=== PATIENT | male | born 1960 | race Caucasian/White ===

== ENCOUNTER 2016-08-04 02:28 | Emergency (ER) | payer OTHER ==
--- NOTE | 2016-08-04 04:49 | ED ORDER SUMMARY ---
..... Patient: SARA JEREZ OrderSheet [facility] VisitID: [id number] [address] [place] [address] 55y, M Registration Date/Time: 08/04/2016 ORDER SHEET Weight: 147.4 kg (stated) Allergies: No Known Drug Allergy GENERAL ORDERS: UA-Culture if indicated Urgent (03:03 08/04/2016 Tra Poole) (Ack 3:10 [facility] Customer Loyalty Representative) (3:50 JQuivey R.N.) Richards Catheter (03:03 08/04/2016 Tra Poole) (Ack 3:09 JQuivey R.N.) (3:50 JQuivey R.N.) MEDICATION ORDERS: Ativan PO 1 mg (HIGH ALERT MEDICATION, NOW) (04:20 08/04/2016 Tra Poole) (4:24 JQuivey R.N.) IV FLUIDS: ORDER SHEET NOTES: [Electronically signed by Scar Hu R.N. (05:01 08/04/2016)] [Electronically signed by Shayan Villatoro Dr. (05:36 08/06/2016)] [Electronically locked/signed by Scar Hu R.N. (05:01 08/04/2016)]
--- NOTE | 2016-08-04 04:49 | ED NURSING NOTES ---
Clinical Report - Nurses [facility] [address] [place] [address] 08/04/2016 2:30 Patient: SARA JEREZ TRIAGE Acuity: LEVEL 3. Chief Complaint: URINARY RETENTION. 03:09. Alert. SEPSIS SCREEN: Sepsis Screen. Negative (no infection suspected/documented). --03:09 Scar Hu R.N. 02:51 08/04/16. BP: 147/73. HR: 85. RR: 18. O2 saturation: 95%. Temp: 98.5 F (oral). Pain level now: 01/01. --03:09 Scar Hu R.N. Weight: 147.4 kg stated. Height/Length: 72 inches Per Patient. BMI: 44.1. --03:08 Scar Hu R.N. Medications Percocet Oral 5/325 mg, 4x a day. --02:57 Scar Hu R.N. Pyridium Oral 200 mg, 3x a day. --02:57 Scar Hu R.N. Cipro Oral 500 mg, 2x a day. --02:57 Scar Hu R.N. Albuterol Sulfate Inhalation 1 unit dose, PRN. --02:58 Scar Hu R.N. Albuterol Sulfate HFA Inhalation 2 puffs, as needed. --02:59 Scar Hu R.N. AmLODIPine Besylate Oral 5 mg, daily. --02:59 Scar Hu R.N. Aspirin Oral (Tablet 81 mg) 1 tablet, daily. --02:59 Scar Hu R.N. Atorvastatin Calcium Oral 20 mg, daily. --03:00 Scar Hu R.N. Cozaar Oral 50 mg, 2x a day. --03:00 Scar Hu R.N. Eplerenone Oral (Tablet 50 mg) 1 tablet, daily. --03:00 Scar Hu R.N. Fluticasone Furoate-Vilanterol Inhalation. --03:01 Scar Hu R.N. HydrALAZINE HCl Oral (Tablet 10 mg) 1 tablet, daily. --03:01 Scar Hu R.N. Irbesartan Oral 300 mg, daily. --03:02 Scar Hu R.N. LamoTRIgine Oral (Tablet Dispersible 200 mg) 1 tablet, daily. --03:02 Scar Hu R.N. Lipitor Oral 20 mg, daily. --03:02 Scar Hu R.N. MetFORMIN HCl Oral 750mg , daily. --03:03 Scar Hu R.N. Ranitidine HCl Oral 150 mg, daily as needed. --03:03 Scar Hu R.N. Triazolam Oral 0.25 mg, at bedtime (is out ). --03:04 Scar Hu R.N. Allergies No Known Drug Allergy. --03:06 Scar Hu R.N. Medication/allergy information source: the patient and patient's spouse. --03:09 Scar Hu R.N. History Arrived by private vehicle. Historian: patient. Accompanied by spouse. Primary physician (Jeison). Onset. (about 1830). 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 PAST MEDICAL HX: Immunizations: up-to-date. SOCIAL HX: Former smoker, end date 1987. No alcohol use or drug use. No infectious disease exposure. ABUSE ASSESSMENT: No report of abuse. FALL RISK ASSESSMENT: Fall risk assessment completed. No fall risk identified. NUTRITIONAL RISK ASSESSMENT: The nutritional risk assessment revealed no deficiencies. FUNCTIONAL ASSESSMENT: Functional assessment: no impairments noted. LEARNING NEEDS ASSESSMENT: The learning needs assessment revealed no barriers. SKIN INTEGRITY ASSESSMENT: Skin integrity risk assessment completed. No skin integrity risk identified. --03:09 Scar Hu R.N. PROBLEMS: Reflux. Gastroesophageal Reflux Disease. Seizure. Hypertension. Hypercholesterolemia. Brain Tumor. --03:08 Scar Hu R.N. ADDITIONAL SURGERIES: Brain tumor removal . Kidney stone removal . Knee Surgery. Sinus Surgery. --03:08 Scar Hu R.N. Interventions ID band on patient. To treatment room. --03:09 Scar Hu R.N. PHYSICAL ASSESSMENT 03:10. Ambulatory to room. Patient gowned. GENERAL / NEURO / PSYCH: Alert. Oriented X 4. HEENT: Mucous membranes are pink. RESPIRATORY: Respirations not labored. SKIN: Skin is warm and dry. --03:10 Scar Hu R.N. NURSING PROGRESS NOTES Two patient identifiers checked. Call light placed in reach. Bed placed in lowest position. Brakes of bed on. Patient ready for evaluation- chart flagged. --03:10 Scar Hu R.N. 03:36. 14 fr erickson catheter. Reason for indwelling catheter: retention. During procedure hand hygiene observed and sterile equipment and aseptic technique used. Return of 1000 mL orange-colored red-colored bloody urine; attached to bedside drainage bag positioned below the bladder and secured with stabilization device. He tolerated procedure well. --03:49 Scar Hu R.N. 03:40. Patient ID band checked for patient name and birthdate: patient confirmed. Catheterized urine collected with return of orange-colored red-colored bloody urine; sample sent to lab for urinalysis. Specimen labeled in the presence of the patient. --03:50 Scar Hu R.N. 04:24 08/04/2016 Ativan (LORazepam) PO 1 mg given. Allergies verified, confirmed 5 rights and sedative warning given to the patient and patient's family. --04:24 Scar Hu R.N. 04:56. The patient is calm and resting quietly. Overall patient status is improved- he states feels better. SKIN: Skin is warm and dry. Skin color within normal limits. --05:00 Scar Hu R.N. DISPOSITION / DISCHARGE Departure time: 04:58. Condition at departure: stable. No learning barriers present. Discharge instructions provided and reviewed with the patient and spouse. Reviewed medication(s) side effects, precautions, dosing and course information. Prescription(s) given to the patient. Patient and spouse verbalized understanding. Written instructions provided in Lithuanian. The patient was discharged home and accompanied by spouse. He left the Emergency Department ambulatory and via private vehicle. Spouse driving. FALL RISK ASSESSMENT: Fall risk assessment completed. No fall risk identified. --04:59 Scar Hu R.N. 04:50 08/04/16. BP: 119/81. HR: 67. RR: 16. O2 saturation: 95% on room air. Pain level now: 04/03. --04:59 Scar Hu R.N. Locked/Released at 08/04/2016 5:01 by Scar Hu R.N.
--- NOTE | 2016-08-04 04:49 | ED ORDER SUMMARY ---
..... Patient: SARA JEREZ OrderSheet [facility] VisitID: [id number] [address] [place] [address] 55y, M Registration Date/Time: 08/04/2016 ORDER SHEET Weight: 147.4 kg (stated) Allergies: No Known Drug Allergy GENERAL ORDERS: UA-Culture if indicated Urgent (03:03 08/04/2016 Tra Poole) (Ack 3:10 [facility] Information Systems Project Manager) (3:50 JQuivey R.N.) Richards Catheter (03:03 08/04/2016 Tra Poole) (Ack 3:09 JQuivey R.N.) (3:50 JQuivey R.N.) MEDICATION ORDERS: Ativan PO 1 mg (HIGH ALERT MEDICATION, NOW) (04:20 08/04/2016 Tra Poole) (4:24 JQuivey R.N.) IV FLUIDS: ORDER SHEET NOTES: [Electronically signed by Scar Hu R.N. (05:01 08/04/2016)] [Electronically signed by Shayan Villatoro Dr. (05:36 08/06/2016)] [Electronically locked/signed by Scar Hu R.N. (05:01 08/04/2016)]
--- NOTE | 2016-08-04 04:49 | ED CLINICAL REPORT ---
Clinical Report - Physicians/Mid Levels [facility] [address] [place] [address] 08/04/2016 2:30 Patient: SARA JEREZ Time Seen: 0301. Arrived- By private vehicle. Historian- patient. HISTORY OF PRESENT ILLNESS Chief Complaint: URINARY RETENTION. This started today and is still present and worsening. The problem is described as severe. It was gradual in onset and has been constant but is not gone now. No penile discharge. He has been unable to void. Sexual history is noncontributory. Similar symptoms previously: None. Recent medical care: Not recently seen/assessed. REVIEW OF SYSTEMS No fever. All systems otherwise negative, except as recorded above. PAST HISTORY See nurses notes. SOCIAL HISTORY Never smoker. No alcohol use or drug use. No recent travel. Is a local resident. ADDITIONAL NOTES The nursing notes have been reviewed. PHYSICAL EXAM Vital Signs: 08/04/2016 02:51 BP: 147/73. HR: 85. RR: 18. O2 saturation: 95%. Temp: 98.5 F. Pain level now: 10/10. Oxygen saturation normal. Appearance: Alert. Oriented X3. No acute distress. (non-toxic appearance). ENT: Normal external inspection. Pharynx normal. Neck: Neck supple. CVS: Heart sounds normal. Respiratory: No respiratory distress. Breath sounds normal. Abdomen: Soft and nontender. Bowel sounds normal. No organomegaly. No mass. Femoral pulses equal. Back: Normal external inspection. : Normal genitalia. Testes descended. (erickson catheter placed by RN. blood tinged urine in tubing. no clots.). Skin: Skin warm and dry. Normal skin color. No rash. Normal skin turgor. Extremities: Extremities exhibit normal ROM. No lower extremity edema. LABS, X-RAYS, AND EKG Laboratory Tests: UA-Culture if indicated: (BRUCE: 08/04/2016 03:40) ( MsgRcvd 08/04/2016 04:46) Final results Test Result Flag Units (Reference) URINE COLOR BROWN URINE APPEARANCE CLOUDY URINE GLUCOSE NEGATIVE (NEGATIVE) URINE BILIRUBIN 1+ (NEGATIVE) URINE KETONE NEGATIVE (NEGATIVE) URINE SPECIFIC GRAVITY 1.020 (1.010-1.030) URINE PH 6.5 (5.0-8.0) URINE PROTEIN 3+ (NEGATIVE) URINE UROBILINOGEN 1.0 EU/dL (0.2-1.0) URINE NITRITE POSITIVE (NEGATIVE) URINE BLOOD 3+ (NEGATIVE) URINE LEUK ESTERASE TRACE (NEGATIVE) URINE RBC >100 rbc/hpf (0-1) URINE WBC 1-3 wbc/hpf (0-1) URINE EPITHELIAL CELLS 0-1 EPI/hpf (0-5) URINE BACTERIA TRACE (<1+) (NONE SEEN) URINE COMMENT CULTURE INDICATED URINE CULTURES ARE SET-UP BASED ON THE FOLLOWING CRITERIA:POSITIVE NITRITEPOSITIVE LEUKOCYTE ESTERASEGREATER THAN 10 WHITE BLOOD CELLSMODERATE (2+) OR GREATER BACTERIA Culture, Urine: (BRUCE: 08/04/2016 03:40) ( MsgRcvd 08/05/2016 11:10) IP Test Result Flag Units (Reference) CULTURE, URINE DATE: 08/05/16 NO GROWTH AT:: NO GROWTH AT 1 DAY PRELIM REPORT: PRELIMINARY REPORT #1 . PROGRESS AND PROCEDURES Course of Care: The patient is a pleasant 55-year-old male presenting for eval shows urinary retention. Patient had recent urological procedure. This is likely the result of the patient's urinary retention. No back pain or other symptoms to suggest acute spinal cord injury were compromise. had a discussion with the patient in regards to symptoms here in the emergency department and possible treatment options. Patient is agreeable to Erickson catheter. Because of the patient's symptoms here in the emergency department, would be concern for possible clots obstructing the patient's outflow. We'll monitor treatment emergency department after the Erickson has been placed. Urinalysis is remarkable for the findings above. Patient with urinary tract infection. Because the patient has been on ciprofloxacin, would be concern for bacterial resistance. We'll also start patient on a different antibiotic. No other concerns at this time. Patient reports significant improvement with his symptoms here in the emergency department. Erickson catheter is continued to be drained without any signs of obstruction. Discussed the patient's workup here in the emergency department including diagnosis, home care, follow-up, and return precautions. All questions have been answered. The patient expressed understanding of these instructions and was agreeable to them. Disposition: Discharged. Condition: good. CLINICAL IMPRESSION 08/04/2016 02:51 BP: 147/73. HR: 85. RR: 18. O2 saturation: 95%. Temp: 98.5 F. Pain level now: 10/10. Gross hematuria Hypertensive. Oxygen saturation normal. Acute urinary tract infection with cystitis and hematuria. Urinary retention (acute). INSTRUCTIONS Warnings: GENERAL WARNINGS: Return or contact your physician immediately if your condition worsens or changes unexpectedly, if not improving as expected, or if other problems arise. Specifically return if pain, vomiting, bleeding, breathing difficulty or fever. Your Current Medications: STOP TAKING THE FOLLOWING MEDICATIONS: Cipro Oral : 500 mg 2x a day. CONTINUE TAKING THE FOLLOWING MEDICATIONS: Albuterol Sulfate HFA Inhalation : 2 puffs, prn. Albuterol Sulfate Inhalation : 1 unit dose PRN. AmLODIPine Besylate Oral : 5 mg daily. Aspirin Oral : Tablet 81 mg, 1 tablet daily. Atorvastatin Calcium Oral : 20 mg daily. Cozaar Oral : 50 mg 2x a day. Eplerenone Oral : Tablet 50 mg, 1 tablet daily. Fluticasone Furoate-Vilanterol Inhalation. HydrALAZINE HCl Oral : Tablet 10 mg, 1 tablet daily. Irbesartan Oral : 300 mg daily. LamoTRIgine Oral : Tablet Dispersible 200 mg, 1 tablet daily. Lipitor Oral : 20 mg daily. MetFORMIN HCl Oral : 750mg daily. Percocet Oral : 5/325 mg 4x a day. Pyridium Oral : 200 mg 3x a day. Ranitidine HCl Oral : 150 mg daily, prn. Triazolam Oral : 0.25 mg at bedtime, is out. Prescription Medications: Bactrim DS 800 mg / 160 mg: take 1 tablet orally every 12 hours for 10 days. No refill. Substitution is permissible. Follow-up: Return to the emergency department as needed. Follow up with a specialist your urologist. Call for an appointment. Reason for referral: recheck today's concerns. Summary of care provided to patient via paper. Follow up with your doctor in three days. Reason for referral: recheck today's concerns. Summary of care provided to patient via paper. Screening today revealed the patient's blood pressure to be in the hypertensive range. Blood pressure screening was not performed during this visit because the patient has an active diagnosis of hypertension. The patient should follow up with a primary care provider for blood pressure management. Understanding of the discharge instructions verbalized by patient. (Electronically signed by Shayan Villatoro Dr. 08/06/2016 5:36)
--- NOTE | 2016-08-06 05:37 | ED MED RECONCILIATION SUMMARY ---
Patient: SARA JEREZ Medication Reconciliation Report Located Within [facility] VisitID: [id number] [address] [place] [address] 55y, M Registration Date/Time: 08/04/2016 Weight: 147.4 kg Height/Length: 72 in. BMI: 44.1 ALLERGIES: No Known Drug Allergy The patient's Home Medications are listed below: STOP TAKING THE FOLLOWING MEDICATIONS: Cipro Oral 500 mg, 2x a day CONTINUE TAKING THE FOLLOWING MEDICATIONS: Albuterol Sulfate HFA Inhalation 2 puffs Albuterol Sulfate Inhalation 1 unit dose, PRN AmLODIPine Besylate Oral 5 mg, daily Aspirin Oral (81 mg) 1 tablet, daily Atorvastatin Calcium Oral 20 mg, daily Cozaar Oral 50 mg, 2x a day Eplerenone Oral (50 mg) 1 tablet, daily Fluticasone Furoate-Vilanterol Inhalation HydrALAZINE HCl Oral (10 mg) 1 tablet, daily Irbesartan Oral 300 mg, daily LamoTRIgine Oral (200 mg) 1 tablet, daily Lipitor Oral 20 mg, daily MetFORMIN HCl Oral 750mg , daily Percocet Oral 5/325 mg, 4x a day Pyridium Oral 200 mg, 3x a day Ranitidine HCl Oral 150 mg, daily Triazolam Oral 0.25 mg, at bedtime, is out The source(s) of the original Home Medication information: patient patient's spouse The following Medications were given to the patient in the Emergency Department: Ativan [PO] PO 1 mg, administered: 08/04/2016 4:24:00 AM The following Medications were prescribed to the patient: Bactrim DS 800 mg / 160 mg: take 1 tablet orally every 12 hours for 10 days. No refill. Substitution is permissible. -- Shayan Villatoro Dr.
--- NOTE | 2016-08-06 05:37 | ED MAR SUMMARY ---
..... Medication Administration Record [facility] [address] [place] [address] Patient: SARA JEREZ Visit ID: [id number] 55y, M Weight: 147.4 kg Height/Length: 72 in BMI: 44.1 ALLERGIES: No Known Drug Allergy Given 04:24 08/04/2016 Scar Hu RLissetteNLissette Medication Administered: ATIVAN [PO] (LORAZEPAM), Dose: 1 mg PO. Medication Ordered: Ativan PO 1 mg (HIGH ALERT MEDICATION, NOW).
--- NOTE | 2016-08-06 05:37 | ED MAR SUMMARY ---
..... Medication Administration Record [facility] [address] [place] [address] Patient: SARA JEREZ Visit ID: [id number] 55y, M Weight: 147.4 kg Height/Length: 72 in BMI: 44.1 ALLERGIES: No Known Drug Allergy Given 04:24 08/04/2016 Scar Hu RLissetteNLissette Medication Administered: ATIVAN [PO] (LORAZEPAM), Dose: 1 mg PO. Medication Ordered: Ativan PO 1 mg (HIGH ALERT MEDICATION, NOW).
--- NOTE | 2016-08-06 05:37 | ED MED RECONCILIATION SUMMARY ---
Patient: SARA JEREZ Medication Reconciliation Report [facility] VisitID: [id number] [address] [place] [address] 55y, M Registration Date/Time: 08/04/2016 Weight: 147.4 kg Height/Length: 72 in. BMI: 44.1 ALLERGIES: No Known Drug Allergy The patient's Home Medications are listed below: STOP TAKING THE FOLLOWING MEDICATIONS: Cipro Oral 500 mg, 2x a day CONTINUE TAKING THE FOLLOWING MEDICATIONS: Albuterol Sulfate HFA Inhalation 2 puffs Albuterol Sulfate Inhalation 1 unit dose, PRN AmLODIPine Besylate Oral 5 mg, daily Aspirin Oral (81 mg) 1 tablet, daily Atorvastatin Calcium Oral 20 mg, daily Cozaar Oral 50 mg, 2x a day Eplerenone Oral (50 mg) 1 tablet, daily Fluticasone Furoate-Vilanterol Inhalation HydrALAZINE HCl Oral (10 mg) 1 tablet, daily Irbesartan Oral 300 mg, daily LamoTRIgine Oral (200 mg) 1 tablet, daily Lipitor Oral 20 mg, daily MetFORMIN HCl Oral 750mg , daily Percocet Oral 5/325 mg, 4x a day Pyridium Oral 200 mg, 3x a day Ranitidine HCl Oral 150 mg, daily Triazolam Oral 0.25 mg, at bedtime, is out The source(s) of the original Home Medication information: patient patient's spouse The following Medications were given to the patient in the Emergency Department: Ativan [PO] PO 1 mg, administered: 08/04/2016 4:24:00 AM The following Medications were prescribed to the patient: Bactrim DS 800 mg / 160 mg: take 1 tablet orally every 12 hours for 10 days. No refill. Substitution is permissible. -- Shayan Villatoro Dr.
--- NOTE | 2016-08-06 05:37 | ED DISCHARGE INSTRUCTIONS ---
Patient: SARA JEREZ General Instructions [facility] VisitID: [id number] [address] [place] [address] 55y, M Registration Date/Time: 08/04/2016 08/04/2016 02:51 BP: 147/73. HR: 85. RR: 18. O2 saturation: 95%. Temp: 98.5 F. Pain level now: 01/01. Gross hematuria Hypertensive. Oxygen saturation normal. Acute urinary tract infection with cystitis and hematuria. Urinary retention (acute). INSTRUCTIONS Warnings: GENERAL WARNINGS: Return or contact your physician immediately if your condition worsens or changes unexpectedly, if not improving as expected, or if other problems arise. Specifically return if pain, vomiting, bleeding, breathing difficulty or fever. Your Current Medications: STOP TAKING THE FOLLOWING MEDICATIONS: Cipro Oral : 500 mg 2x a day. CONTINUE TAKING THE FOLLOWING MEDICATIONS: Albuterol Sulfate HFA Inhalation : 2 puffs, prn. Albuterol Sulfate Inhalation : 1 unit dose PRN. AmLODIPine Besylate Oral : 5 mg daily. Aspirin Oral : Tablet 81 mg, 1 tablet daily. Atorvastatin Calcium Oral : 20 mg daily. Cozaar Oral : 50 mg 2x a day. Eplerenone Oral : Tablet 50 mg, 1 tablet daily. Fluticasone Furoate-Vilanterol Inhalation. HydrALAZINE HCl Oral : Tablet 10 mg, 1 tablet daily. Irbesartan Oral : 300 mg daily. LamoTRIgine Oral : Tablet Dispersible 200 mg, 1 tablet daily. Lipitor Oral : 20 mg daily. MetFORMIN HCl Oral : 750mg daily. Percocet Oral : 5/325 mg 4x a day. Pyridium Oral : 200 mg 3x a day. Ranitidine HCl Oral : 150 mg daily, prn. Triazolam Oral : 0.25 mg at bedtime, is out. Prescription Medications: Bactrim DS 800 mg / 160 mg: take 1 tablet orally every 12 hours for 10 days. No refill. Substitution is permissible. Follow-up: Return to the emergency department as needed. Follow up with a specialist your urologist. Call for an appointment. Reason for referral: recheck today's concerns. Summary of care provided to patient via paper. Follow up with your doctor in three days. Reason for referral: recheck today's concerns. Summary of care provided to patient via paper. Screening today revealed the patient's blood pressure to be in the hypertensive range. Blood pressure screening was not performed during this visit because the patient has an active diagnosis of hypertension. The patient should follow up with a primary care provider for blood pressure management. Understanding of the discharge instructions verbalized by patient. ADDITIONAL INFORMATION Bladder Infection,Male (Adult) A bladder infection ("cystitis" or "UTI") usually causes a constant urge to urinate, and a burning when passing urine. Urine may be cloudy, smelly or dark. There may be also be pain in the lower abdomen. Cystitis in males is not common. It may be caused by a partial blockage in the urinary system that keeps the bladder from emptying completely. This is most often related to an enlarged prostate gland. Home Care: Drink lots of fluids (at least 6-8 glasses a day). This will flush the bacteria out of your bladder. Avoid sexual intercourse until your symptoms are gone. Avoid caffeine, alcohol, and spicy foods. They could irritate the bladder. A bladder infection is treated with antibiotics. You may also be given Pyridium (generic - phenazopyridine) to reduce burning with urination. This will cause urine to become a bright orange color, which can stain clothing. Follow Up with your doctor or this facility if ALL symptoms have not cleared within five days. It is important to keep your follow up appointment to discuss with your doctor the need for further tests of the urinary tract. Get Prompt Medical Attention if any of the following occur: Fever of 100.4F (38C) or higher, or as directed by your healthcare provider No improvement by the third day of treatment Increasing back or abdominal pain Repeated vomiting; unable to keep medicine down Weakness, dizziness or fainting Urinary Retention (Male) Urinary retention means that you are unable to pass urine, even though your bladder is full. The most common cause for this in males is a blockage of the bladder outlet by an enlarged prostate gland or a bladder infection. Certain medicines can also cause this problem. This condition is treated by insertion of a catheter into the bladder to drain the urine. This provides immediate relief. The catheter may need to remain in place for a few days to prevent a recurrence. The catheter has a balloon on the tip which was inflated after insertion. This prevents the catheter from falling out. Home Care: If an antibiotic was prescribed to treat a bladder infection, be sure to take it until finished, even if you are feeling better before it is all gone. If a catheter was left in place, it is important to keep bacteria from getting into the collection bag. Do not disconnect the catheter from the collection bag. Use a leg band to secure the drainage tube, so it does not pull on the catheter. Drain the collection bag when it becomes full using the drain spout at the bottom of the bag. Do not try to pull or remove your catheter. This will injure your urethra. It must be removed by a doctor or nurse. Follow Up with your doctor as advised. If a catheter was left in place, it can usually be removed within 3-7 days. Some conditions require that the catheter remains in longer. Follow up with your doctor to determine the right time for you. Get Prompt Medical Attention if any of the following occur: Fever of 100.4F (38C) or higher, or as directed by your healthcare provider Bladder or lower abdominal pain or fullness Abdominal swelling, nausea, vomiting or back pain Blood or urine leakage around the catheter Bloody urine coming from the catheter (if a new symptom) Weakness, dizziness or fainting Confusion or change in usual level of alertness If a catheter was left in place, return if: Catheter falls out Catheter stops draining for 6 hours Blood In The Urine Blood in the urine ("hematuria") has many possible causes. If it occurs after an injury (such as a car accident or fall), it is most often a sign of bruising to the kidney or bladder. Common medical causes of blood in the urine include urinary tract infection, kidney stone, inflammation, tumors, or certain other diseases of the kidney or bladder. Menstruation can cause blood to appear in the urine sample, although it is not coming from the urinary tract. If only a trace amount of blood is present, it will show up on the urine test, even though the urine may be yellow and not pink or red. This may occur with any of the above conditions, as well as heavy exercise or high fever. In this case, your doctor may want to repeat the urine test on another day. This will show if the blood is still present. If so, then other tests can be done to find out the cause. Home Care: If your urine does not appear bloody (pink, brown or red) then you do not need to restrict your activity in any way. If you can see blood in your urine, rest and avoid heavy exertion until your next exam. Do not use aspirin or anti-inflammatory medicine like ibuprofen (Motrin, Advil) or naproxen (Naprosyn, Aleve). These thin the blood and may increase bleeding. Follow Up with your doctor or as advised by our staff. If you were injured and had blood in your urine, you should have a repeat urine test in 1-2 days. Contact your doctor or return to this facility for this test. [NOTE: A radiologist will review any X-rays that were taken. We will notify you of any new findings that may affect your care.] Get Prompt Medical Attention if any of the following occur: Bright red blood or blood clots in the urine (if a new symptom) Weakness, dizziness or fainting New groin, abdominal or back pain Fever of 100.4F (38C) or higher, or as directed by your healthcare provider Repeated vomiting Bleeding from nose, gums or easy bruising Sulfamethoxazole, Trimethoprim Oral tablet What is this medicine? SULFAMETHOXAZOLE; TRIMETHOPRIM or SMX-TMP (suhl fuh meth OK sky zohl; trye METH oh prim) is a combination of a sulfonamide antibiotic and a second antibiotic, trimethoprim. It is used to treat or prevent certain kinds of bacterial infections. It will not work for colds, flu, or other viral infections. How should I use this medicine? Take this medicine by mouth with a full glass of water. Follow the directions on the prescription label. Take your medicine at regular intervals. Do not take it more often than directed. Do not skip doses or stop your medicine early. Talk to your inspector screen printing regarding the use of this medicine in children. Special care may be needed. This medicine has been used in children as young as 2 months of age. What side effects may I notice from receiving this medicine? Side effects that you should report to your doctor or health home day care provider as soon as possible: allergic reactions like skin rash or hives, swelling of the face, lips, or tongue breathing problems fever or chills, sore throat irregular heartbeat, chest pain joint or muscle pain pain or difficulty passing urine red pinpoint spots on skin redness, blistering, peeling or loosening of the skin, including inside the mouth unusual bleeding or bruising unusually weak or tired yellowing of the eyes or skin Side effects that usually do not require medical attention (report to your doctor or health home day care provider if they continue or are bothersome): diarrhea dizziness headache loss of appetite nausea, vomiting nervousness What may interact with this medicine? Do not take this medicine with any of the following medications: aminobenzoate potassium dofetilide metronidazole This medicine may also interact with the following medications: VIRGIE inhibitors like benazepril, enalapril, lisinopril, and ramipril cyclosporine digoxin diuretics indomethacin medicines for diabetes methenamine methotrexate phenytoin potassium supplements pyrimethamine sulfinpyrazone tricyclic antidepressants warfarin What if I miss a dose? If you miss a dose, take it as soon as you can. If it is almost time for your next dose, take only that dose. Do not take double or extra doses. Where should I keep my medicine? Keep out of the reach of children. Store at room temperature between 20 to 25 degrees C (68 to 77 degrees F). Protect from light. Throw away any unused medicine after the expiration date. What should I tell my health care provider before I take this medicine? They need to know if you have any of these conditions: anemia asthma being treated with anticonvulsants if you frequently drink alcohol containing drinks kidney disease liver disease low level of folic acid or [id number] dehydrogenase poor nutrition or malabsorption porphyria severe allergies thyroid disorder an unusual or allergic reaction to sulfamethoxazole, trimethoprim, sulfa drugs, other medicines, foods, dyes, or preservatives or trying to get breast-feeding What should I watch for while using this medicine? Tell your doctor or health home day care provider if your symptoms do not improve. Drink several glasses of water a day to reduce the risk of kidney problems. Do not treat diarrhea with over the counter products. Contact your doctor if you have diarrhea that lasts more than 2 days or if it is severe and watery. This medicine can make you more sensitive to the sun. Keep out of the sun. If you cannot avoid being in the sun, wear protective clothing and use a sunscreen. Do not use sun lamps or tanning beds/booths. You have been given the following additional information: Bladder Infection, Male (Adult) Urinary Retention, Male Hematuria Sulfamethoxazole, Trimethoprim Oral tablet (Electronically signed by Shayan Villatoro Dr. 08/06/2016 5:36)
== END 2016-08-04 04:58 | disposition home or self-care (01) ==
LOC: ED SRH 02:28
DX: N30.01 Acute cystitis with hematuria (principal); R33.9 Retention of urine, unspecified; I10 Essential (primary) hypertension
CPT/HCPCS: 90004; 90469

== ENCOUNTER 2016-08-13 18:54 | Emergency (ER) | payer OTHER ==
--- NOTE | 2016-08-13 20:22 | ED CLINICAL REPORT ---
Clinical Report - Physicians/Mid Levels [facility] [address] [place] [address] 08/13/2016 18:54 Patient: SARA JEREZ Time Seen: 20:35 Aug 13 2016. Arrived- By private vehicle. Historian- patient. HISTORY OF PRESENT ILLNESS Chief Complaint: URINARY RETENTION. This started today and is still present. The problem is described as moderate. No penile discharge or discomfort with urination. He has been unable to void. (Patient had his Richards catheter removed today, and has only been able to void small amounts since then. Patient with history of nephrolithiasis and stent placement previously on the left side due to a larger stone. Patient denies any fevers or chills. Reports difficulty urinating since 3 PM. Patient is followed by urology.). REVIEW OF SYSTEMS No fever, chills, hematuria, vomiting or diarrhea. No difficulty breathing or cough. All systems otherwise negative, except as recorded above. PAST HISTORY Problems: UTI - Urinary Tract Infection. Hematuria. Gastroesophageal Reflux Disease. Reflux. Seizure. Hypercholesterolemia. Hypertension. Brain Tumor. Additional Surgeries: Brain tumor removal . Kidney stone removal . Knee Surgery. Sinus Surgery. Medications: Flomax Oral (Capsule 0.4 mg) 1 capsule, daily. Atorvastatin Calcium Oral 20 mg, daily. Cipro Oral 500 mg, 2x a day. Cozaar Oral 50 mg, 2x a day. Eplerenone Oral (Tablet 50 mg) 1 tablet, daily. Fluticasone Furoate-Vilanterol Inhalation. HydrALAZINE HCl Oral (Tablet 10 mg) 1 tablet, daily. Irbesartan Oral 300 mg, daily. LamoTRIgine Oral (Tablet Dispersible 200 mg) 1 tablet, daily. Lipitor Oral 20 mg, daily. MetFORMIN HCl Oral 750mg , daily. Percocet Oral 5/325 mg, 4x a day. Pyridium Oral 200 mg, 3x a day. Ranitidine HCl Oral 150 mg, daily as needed. Triazolam Oral 0.25 mg, at bedtime (is out ). Albuterol Sulfate HFA Inhalation 2 puffs, as needed. Albuterol Sulfate Inhalation 1 unit dose, PRN. AmLODIPine Besylate Oral 5 mg, daily. Aspirin Oral (Tablet 81 mg) 1 tablet, daily. Allergies: No Known Drug Allergy. SOCIAL HISTORY Never smoker. No alcohol use. ADDITIONAL NOTES The nursing notes have been reviewed. PHYSICAL EXAM Vital Signs: 08/13/2016 19:44 BP: 132/78. HR: 78. RR: 18. O2 saturation: 96%. Temp: 97.8 F. Pain level now: 10. Appearance: Alert. Appears to be in pain. Patient in moderate distress. CVS: Heart sounds normal. Abdomen: Soft and nontender. Bowel sounds normal. No abdominal tenderness or rebound tenderness. Skin: Skin warm. PROGRESS AND PROCEDURES Course of Care: Richards catheter inserted with thousand milliliter immediate output. Patient with improvement of symptoms. Currently on Bactrim. Patient to follow up with urology as needed. No further acute workup in the emergency department. Patient is stable. Symptoms better. Patient/family counseled. Disposition: Discharged. CLINICAL IMPRESSION Urinary retention. INSTRUCTIONS Drink plenty of fluids. (Follow up with your DR). Warnings: Further evaluation is necessary. Follow-up: Follow up with your doctor in three days. (Electronically signed by Vanessa Lagunas P.A.-C 08/13/2016 20:38)
--- NOTE | 2016-08-13 20:22 | ED CLINICAL REPORT ---
Clinical Report - Physicians/Mid Levels [facility] [address] [place] [address] 08/13/2016 18:54 Patient: SARA JEREZ Time Seen: 20:35 Aug 13 2016. Arrived- By private vehicle. Historian- patient. HISTORY OF PRESENT ILLNESS Chief Complaint: URINARY RETENTION. This started today and is still present. The problem is described as moderate. No penile discharge or discomfort with urination. He has been unable to void. (Patient had his Richards catheter removed today, and has only been able to void small amounts since then. Patient with history of nephrolithiasis and stent placement previously on the left side due to a larger stone. Patient denies any fevers or chills. Reports difficulty urinating since 3 PM. Patient is followed by urology.). REVIEW OF SYSTEMS No fever, chills, hematuria, vomiting or diarrhea. No difficulty breathing or cough. All systems otherwise negative, except as recorded above. PAST HISTORY Problems: UTI - Urinary Tract Infection. Hematuria. Gastroesophageal Reflux Disease. Reflux. Seizure. Hypercholesterolemia. Hypertension. Brain Tumor. Additional Surgeries: Brain tumor removal . Kidney stone removal . Knee Surgery. Sinus Surgery. Medications: Flomax Oral (Capsule 0.4 mg) 1 capsule, daily. Atorvastatin Calcium Oral 20 mg, daily. Cipro Oral 500 mg, 2x a day. Cozaar Oral 50 mg, 2x a day. Eplerenone Oral (Tablet 50 mg) 1 tablet, daily. Fluticasone Furoate-Vilanterol Inhalation. HydrALAZINE HCl Oral (Tablet 10 mg) 1 tablet, daily. Irbesartan Oral 300 mg, daily. LamoTRIgine Oral (Tablet Dispersible 200 mg) 1 tablet, daily. Lipitor Oral 20 mg, daily. MetFORMIN HCl Oral 750mg , daily. Percocet Oral 5/325 mg, 4x a day. Pyridium Oral 200 mg, 3x a day. Ranitidine HCl Oral 150 mg, daily as needed. Triazolam Oral 0.25 mg, at bedtime (is out ). Albuterol Sulfate HFA Inhalation 2 puffs, as needed. Albuterol Sulfate Inhalation 1 unit dose, PRN. AmLODIPine Besylate Oral 5 mg, daily. Aspirin Oral (Tablet 81 mg) 1 tablet, daily. Allergies: No Known Drug Allergy. SOCIAL HISTORY Never smoker. No alcohol use. ADDITIONAL NOTES The nursing notes have been reviewed. PHYSICAL EXAM Vital Signs: 08/13/2016 19:44 BP: 132/78. HR: 78. RR: 18. O2 saturation: 96%. Temp: 97.8 F. Pain level now: 10. Appearance: Alert. Appears to be in pain. Patient in moderate distress. CVS: Heart sounds normal. Abdomen: Soft and nontender. Bowel sounds normal. No abdominal tenderness or rebound tenderness. Skin: Skin warm. PROGRESS AND PROCEDURES Course of Care: Richards catheter inserted with thousand milliliter immediate output. Patient with improvement of symptoms. Currently on Bactrim. Patient to follow up with urology as needed. No further acute workup in the emergency department. Patient is stable. Symptoms better. Patient/family counseled. Disposition: Discharged. CLINICAL IMPRESSION Urinary retention. INSTRUCTIONS Drink plenty of fluids. (Follow up with your DR). Warnings: Further evaluation is necessary. Follow-up: Follow up with your doctor in three days. (Electronically signed by Vanessa Lagunas P.A.-C 08/13/2016 20:38)
--- NOTE | 2016-08-13 20:23 | ED NURSING NOTES ---
Clinical Report - [facility] [address] [place] [address] 08/13/2016 18:54 Patient: SARA JEREZ TRIAGE Triage time 19:44. Acuity: LEVEL 3. Chief Complaint: URINARY RETENTION. --20:01 Sherly Corral R.N. 19:44 08/13/16. BP: 132/78 taken on the left arm, while lying. HR: 78. RR: 18. O2 saturation: 96% on room air. Temp: 97.8 F (oral). Pain level now: 01/01. --20:01 Sherly Corral R.N. Weight: 146.5 kg stated. Height/Length: 72 inches Per Patient. BMI: 43.8. --19:59 Sherly Corral R.N. Medications Albuterol Sulfate HFA Inhalation 2 puffs, as needed. Albuterol Sulfate Inhalation 1 unit dose, PRN. AmLODIPine Besylate Oral 5 mg, daily. Aspirin Oral (Tablet 81 mg) 1 tablet, daily. --19:59 Sherly Corral R.N. Atorvastatin Calcium Oral 20 mg, daily. Cipro Oral 500 mg, 2x a day. Cozaar Oral 50 mg, 2x a day. Eplerenone Oral (Tablet 50 mg) 1 tablet, daily. Fluticasone Furoate-Vilanterol Inhalation. HydrALAZINE HCl Oral (Tablet 10 mg) 1 tablet, daily. Irbesartan Oral 300 mg, daily. LamoTRIgine Oral (Tablet Dispersible 200 mg) 1 tablet, daily. Lipitor Oral 20 mg, daily. MetFORMIN HCl Oral 750mg , daily. Percocet Oral 5/325 mg, 4x a day. Pyridium Oral 200 mg, 3x a day. Ranitidine HCl Oral 150 mg, daily as needed. Triazolam Oral 0.25 mg, at bedtime (is out ). --19:59 Sherly Corral R.N. Flomax Oral (Capsule 0.4 mg) 1 capsule, daily. --20:00 Sherly Corral R.N. Allergies No Known Drug Allergy. --19:59 Sherly Corral R.N. History Arrived by private vehicle. Historian: patient. Accompanied by family. This started today. ( unable to void for the last 5 hours, erickson removed today from kidney stone removal). SOCIAL HX: Never smoker. No alcohol use or drug use. He has not traveled outside the [place] The patient was not exposed to tuberculosis, influenza, chicken pox, meningitis, MRSA, VRE, C-diff, SARS, [place] flu, H1N1 flu, Ebola or MERS. ABUSE ASSESSMENT: No report of abuse. SELF HARM ASSESSMENT: A self harm assessment was performed. The patient answered "no" to the question "Have you recently felt down, depressed, or hopeless?", "Have you noticed less interest or pleasure in doing things?", "Do you have thoughts of harming or killing yourself?", "Are you here because you tried to hurt yourself?", "Have you ever tried to hurt yourself before today?", "Have you recently had thoughts about harming or killing others?" and "Do you have any dangerous items in your possession?". FALL RISK ASSESSMENT: Fall risk assessment completed. No fall risk identified. NUTRITIONAL RISK ASSESSMENT: The nutritional risk assessment revealed no deficiencies. FUNCTIONAL ASSESSMENT: Functional assessment: no impairments noted. LEARNING NEEDS ASSESSMENT: The learning needs assessment revealed no barriers. SKIN INTEGRITY ASSESSMENT: Skin integrity risk assessment completed. No skin integrity risk identified. --20:01 Sherly Corral R.N. PROBLEMS: UTI - Urinary Tract Infection. Urinary Retention. Hematuria. Gastroesophageal Reflux Disease. Reflux. Seizure. Hypercholesterolemia. Hypertension. Brain Tumor. --20:00 Sherly Corral R.N. ADDITIONAL SURGERIES: Brain tumor removal . Kidney stone removal . Knee Surgery. Sinus Surgery. --20:00 Sherly Corral R.N. Interventions ID band on patient. --20:01 Sherly Corral R.N. PHYSICAL ASSESSMENT Ambulatory to room. GENERAL / NEURO / PSYCH: Alert. Oriented X 4. Appears in pain and anxious. HEENT: Mucous membranes are pink. RESPIRATORY: Respirations not labored. CVS: Normal heart rate and rhythm. GI / : Abdominal tenderness in the suprapubic area. Bowel sounds within normal limits. Urgency of urination (unable to void). Normal genitalia. No genital lesions noted. SKIN: Skin is warm and dry. --20:03 Sherly Corral R.N. NURSING PROGRESS NOTES Two patient identifiers checked. Call light placed in reach. Side rails up x 2. Bed placed in lowest position. Brakes of bed on. --20:03 Sherly Corral R.N. 14 fr erickson catheter placed. Reason for indwelling catheter: retention. During procedure hand hygiene observed and sterile equipment and aseptic technique used. Return of greater than 1000 mL yellow-colored bloody cloudy urine; attached to bedside drainage bag positioned below the bladder and secured with velcro. He tolerated procedure well. --20:04 Sherly Corral R.N. DISPOSITION / DISCHARGE Departure time: 2038 PM. Condition at departure: improved and stable. The goals identified in the patient's plan of care were met. No learning barriers present. Discharge instructions provided and reviewed with the patient and spouse. Reviewed warnings (s/s of clotting). Patient verbalized understanding. Written instructions provided in Irish. No medication instructions, treatment instructions or referrals given to the patient. The patient was discharged by the physician senior underwriting assistant. He was discharged home and accompanied by spouse. He left the Emergency Department ambulatory and via private vehicle. Spouse driving. FALL RISK ASSESSMENT: Fall risk assessment completed. No fall risk identified. MEETA COMA SCORE: [place] Coma Scale: 15- eyes open spontaneously (4); best verbal response- oriented x 4 (5); best motor response- obeys commands (6). --20:40 Kaitlynn Gerard R.N. 20:15 08/13/16. BP: 122/72 (large adult cuff) taken on the left arm, via an automated monitor, while sitting. HR: 78. RR: 15. O2 saturation: 100% on room air. Temp: 98.3 F (oral). Pain level now: 05/04. --20:40 Kaitlynn Gerard R.N. ( Erickson bag in place and secure, no clotting noted, pt states being comfortable, instructions given as to what to watch out for and when to come back to ED for clotting). --20:41 Kaitlynn Gerard R.N. Locked/Released at 08/13/2016 20:41 by Kaitlynn Gerard R.N.
--- NOTE | 2016-08-13 20:23 | ED ORDER SUMMARY ---
..... Patient: SARA JEREZ OrderSheet [facility] VisitID: [id number] [address] [place] [address] 55y, M Registration Date/Time: 08/13/2016 ORDER SHEET Weight: 146.5 kg (stated) Allergies: No Known Drug Allergy GENERAL ORDERS: Richards Catheter (19:49 08/13/2016 Deanne Abernathy) (20:05 Shelley Rodriguez) MEDICATION ORDERS: IV FLUIDS: ORDER SHEET NOTES: [Electronically signed by Vanessa Lagunas P.A.-C (20:38 08/13/2016)] [Electronically signed by Kaitlynn Gerard R.N. (20:41 08/13/2016)] [Electronically locked/signed by Kaitlynn Gerard R.N. (20:41 08/13/2016)]
--- NOTE | 2016-08-13 20:23 | ED ORDER SUMMARY ---
..... Patient: SARA JEREZ OrderSheet [facility] VisitID: [id number] [address] [place] [place] [address] 55y, M Registration Date/Time: 08/13/2016 ORDER SHEET Weight: 146.5 kg (stated) Allergies: No Known Drug Allergy GENERAL ORDERS: Richards Catheter (19:49 08/13/2016 Deanne Abernathy) (20:05 Shelley Rodriguez) MEDICATION ORDERS: IV FLUIDS: ORDER SHEET NOTES: [Electronically signed by Vanessa Lagunas P.A.-C (20:38 08/13/2016)] [Electronically signed by Kaitlynn Gerard R.N. (20:41 08/13/2016)] [Electronically locked/signed by Kaitlynn Gerard R.N. (20:41 08/13/2016)]
--- NOTE | 2016-08-13 20:41 | ED MAR SUMMARY ---
..... Medication Administration Record [facility] [address] [place] [address] Patient: SARA JEREZ Visit ID: [id number] 55y, M Weight: 146.5 kg Height/Length: 72 in BMI: 43.8 ALLERGIES: No Known Drug Allergy
--- NOTE | 2016-08-13 20:41 | ED MED RECONCILIATION SUMMARY ---
Patient: SARA JEREZ Medication Reconciliation Report [facility] VisitID: [id number] [address] [place] [address] 55y, M Registration Date/Time: 08/13/2016 Weight: 146.5 kg Height/Length: 72 in. BMI: 43.8 ALLERGIES: No Known Drug Allergy The patient's Home Medications are listed below: THE FOLLOWING MEDICATIONS NEED TO BE RECONCILED: Albuterol Sulfate HFA Inhalation 2 puffs Albuterol Sulfate Inhalation 1 unit dose, PRN AmLODIPine Besylate Oral 5 mg, daily Aspirin Oral (81 mg) 1 tablet, daily Atorvastatin Calcium Oral 20 mg, daily Cipro Oral 500 mg, 2x a day Cozaar Oral 50 mg, 2x a day Eplerenone Oral (50 mg) 1 tablet, daily Flomax Oral (0.4 mg) 1 capsule, daily Fluticasone Furoate-Vilanterol Inhalation HydrALAZINE HCl Oral (10 mg) 1 tablet, daily Irbesartan Oral 300 mg, daily LamoTRIgine Oral (200 mg) 1 tablet, daily Lipitor Oral 20 mg, daily MetFORMIN HCl Oral 750mg , daily Percocet Oral 5/325 mg, 4x a day Pyridium Oral 200 mg, 3x a day Ranitidine HCl Oral 150 mg, daily Triazolam Oral 0.25 mg, at bedtime, is out The source(s) of the original Home Medication information: Not obtained. The following Medications were given to the patient in the Emergency Department: None. The following Medications were prescribed to the patient: None.
--- NOTE | 2016-08-13 20:41 | ED MED RECONCILIATION SUMMARY ---
Patient: SARA JEREZ Medication Reconciliation Report [facility] VisitID: [id number] [address] [place] [address] 55y, M Registration Date/Time: 08/13/2016 Weight: 146.5 kg Height/Length: 72 in. BMI: 43.8 ALLERGIES: No Known Drug Allergy The patient's Home Medications are listed below: THE FOLLOWING MEDICATIONS NEED TO BE RECONCILED: Albuterol Sulfate HFA Inhalation 2 puffs Albuterol Sulfate Inhalation 1 unit dose, PRN AmLODIPine Besylate Oral 5 mg, daily Aspirin Oral (81 mg) 1 tablet, daily Atorvastatin Calcium Oral 20 mg, daily Cipro Oral 500 mg, 2x a day Cozaar Oral 50 mg, 2x a day Eplerenone Oral (50 mg) 1 tablet, daily Flomax Oral (0.4 mg) 1 capsule, daily Fluticasone Furoate-Vilanterol Inhalation HydrALAZINE HCl Oral (10 mg) 1 tablet, daily Irbesartan Oral 300 mg, daily LamoTRIgine Oral (200 mg) 1 tablet, daily Lipitor Oral 20 mg, daily MetFORMIN HCl Oral 750mg , daily Percocet Oral 5/325 mg, 4x a day Pyridium Oral 200 mg, 3x a day Ranitidine HCl Oral 150 mg, daily Triazolam Oral 0.25 mg, at bedtime, is out The source(s) of the original Home Medication information: Not obtained. The following Medications were given to the patient in the Emergency Department: None. The following Medications were prescribed to the patient: None.
--- NOTE | 2016-08-13 20:41 | ED MAR SUMMARY ---
..... Medication Administration Record [facility] [address] [place] [address] Patient: SARA JEREZ Visit ID: [id number] 55y, M Weight: 146.5 kg Height/Length: 72 in BMI: 43.8 ALLERGIES: No Known Drug Allergy
--- NOTE | 2016-08-13 20:41 | ED DISCHARGE INSTRUCTIONS ---
Patient: SARA JEREZ General Instructions [facility] VisitID: [id number] [place] [address] 55y, M Registration Date/Time: 08/13/2016 Urinary retention. INSTRUCTIONS Drink plenty of fluids. (Follow up with your DR). Warnings: Further evaluation is necessary. Follow-up: Follow up with your doctor in three days. ADDITIONAL INFORMATION Urinary Retention (Male) Urinary retention means that you are unable to pass urine, even though your bladder is full. The most common cause for this in males is a blockage of the bladder outlet by an enlarged prostate gland or a bladder infection. Certain medicines can also cause this problem. This condition is treated by insertion of a catheter into the bladder to drain the urine. This provides immediate relief. The catheter may need to remain in place for a few days to prevent a recurrence. The catheter has a balloon on the tip which was inflated after insertion. This prevents the catheter from falling out. Home Care: If an antibiotic was prescribed to treat a bladder infection, be sure to take it until finished, even if you are feeling better before it is all gone. If a catheter was left in place, it is important to keep bacteria from getting into the collection bag. Do not disconnect the catheter from the collection bag. Use a leg band to secure the drainage tube, so it does not pull on the catheter. Drain the collection bag when it becomes full using the drain spout at the bottom of the bag. Do not try to pull or remove your catheter. This will injure your urethra. It must be removed by a doctor or nurse. Follow Up with your doctor as advised. If a catheter was left in place, it can usually be removed within 3-7 days. Some conditions require that the catheter remains in longer. Follow up with your doctor to determine the right time for you. Get Prompt Medical Attention if any of the following occur: Fever of 100.4F (38C) or higher, or as directed by your healthcare provider Bladder or lower abdominal pain or fullness Abdominal swelling, nausea, vomiting or back pain Blood or urine leakage around the catheter Bloody urine coming from the catheter (if a new symptom) Weakness, dizziness or fainting Confusion or change in usual level of alertness If a catheter was left in place, return if: Catheter falls out Catheter stops draining for 6 hours You have been given the following additional information: Urinary Retention, Male (Electronically signed by Vanessa Lagunas P.A.-C 08/13/2016 20:38)
== END 2016-08-13 20:41 | disposition home or self-care (01) ==
LOC: ED SRH 18:54
DX: R33.9 Retention of urine, unspecified (principal); I10 Essential (primary) hypertension; K21.9 Gastro-esophageal reflux disease without esophagitis; Z79.82 Long term (current) use of aspirin; Z79.84 Long term (current) use of oral hypoglycemic drugs; Z79.899 Other long term (current) drug therapy
CPT/HCPCS: 83475

== ENCOUNTER 2016-09-01 08:06 | Inpatient (IN) | payer OTHER ==
[~2016-09-01] VITALS: Ht 182.9 cm; Wt 148.3 kg
--- NOTE | 2016-09-01 09:45 | DIAGNOSTIC IMAGING REPORT ---
PROCEDURE: XR CHEST 2 VIEW INDICATION: POSSIBLE FEVER AND CONFUSION TECHNIQUE: PA and lateral views. COMPARISON: None. FINDINGS: Findings suggest free air under the right hemidiaphragm. Lungs are clear. Heart and mediastinum are normal. Thorax is normal. IMPRESSION: 1. Findings suggest free air under the right hemidiaphragm. Consider perforated viscus. CT abdomen and pelvis is recommended to further evaluate. 2. Findings discussed with Dr. Evans.
--- NOTE | 2016-09-01 10:28 | DIAGNOSTIC IMAGING REPORT ---
PROCEDURE: CT HEAD WITHOUT CONTRAST INDICATION: DIZZINESS TECHNIQUE: Noncontrast axial images with sagittal and coronal reformations. COMPARISON: Compared to MRI brain from [facility] on 05/21/2012. FINDINGS: Status post bifrontal craniotomy with excision of subfrontal meningioma, with encephalomalacia and bilateral frontal lobes. Brain and ventricles are otherwise normal. No evidence of an acute process or hemorrhage. Sinuses and mastoids are normal. IMPRESSION: 1. Status post excision of some frontal meningioma with moderate encephalomalacia bilateral frontal lobes. 2. Otherwise negative head CT. No evidence of acute process. 3. Findings discussed with Dr. Evans at [address] scans at this facility use dose modulation, iterative reconstruction, and/or weight-based dosing when appropriate to reduce radiation dose to as low as reasonably achievable.
--- NOTE | 2016-09-01 11:11 | DIAGNOSTIC IMAGING REPORT ---
PROCEDURE: ABDOMEN/PELVIS WITH CONTRAST CLINICAL INDICATION: FREE AIR UNDER RIGHT HEMIDIAPHRAGM TECHNIQUE: 75 ml of Isovue 300 were injected intravenously and axial images were obtained of the abdomen and pelvis with sagittal and coronal reformations. Half dose contrast was given due to decreased renal function. COMPARISON: None. FINDINGS: ABDOMEN: Minimal posterior lung base atelectasis. Heart size at the upper limits of normal with slight pericardial thickening. No effusion. No hiatal hernia. Multiple small scattered foci of extraluminal intraperitoneal gas throughout the anterior upper abdomen with the most gas in the nondependent portion of the central abdomen along the anterior abdominal wall. The origin of the extraluminal gas is not evident, although there is extensive diverticulosis throughout the colon, particularly in the sigmoid and transverse colon. The stomach is decompressed, normal. No perigastric or paraduodenal inflammation to suggest peptic ulcer disease. No small bowel obstruction. The gallbladder surgically absent. Liver , spleen, adrenal glands, right kidney, pancreas, and retroperitoneal vessels appear normal. There is moderate left hydronephrosis, slightly delayed function, and mild diffuse pararenal fat stranding and thickening of the fascia. Moderate, redundant, tortuous course of left hydroureter to the level of the ureterovesicular junction where there is a collection of at least three tiny calculi layering dependently, the largest measuring about 3.9 mm. PELVIS: The prostate gland is diffusely enlarged measuring 7.6 x 6.0 x 8.0 cm. There is a Richards catheter present. The tip is within the urinary bladder, although the balloon is within the cranial portion of the prostatic urethra. There are two punctate calcifications just dorsal to the Richards catheter balloon which may be fragments of calculi. Right urinary collecting system is nondilated, without visible calculi. There are a few mildly enlarged left-sided pelvic sidewall lymph nodes, with the largest is 11 mm in short axis (series 3 image 88). No bulky inguinal adenopathy. No free pelvic fluid. Osseous structures demonstrate severe degenerative disc height loss at L4-5 end L5-S1 and mild degenerative facet endplate changes elsewhere in the spine. IMPRESSION: 1. Multiple small foci of extraluminal gas within the peritoneal cavity suggestive of perforated viscus or an iatrogenic etiology. Given the patient's extensive zuluaga colonic diverticulosis, a perforated, but an inflamed diverticulum is most likely. Occult or early diverticulitis is not entirely excluded. 2. No evidence of peptic ulcer disease. 3. At least three left distal ureteral calculi and moderate hydroureteronephrosis. Given the patient's history of recent left lithotripsy, the chronicity of hydronephrosis is uncertain. Redundant course of the left ureter suggests chronic nature to the hydroureter. 4. Markedly enlarged prostate gland with a Richards catheter in the cranial most aspect of the prostatic urethra. Correlate with function and intended position. 5. Mild left pelvic adenopathy. Correlate with any prior CT scans. 6. Discussed with Dr. Evans in the emergency room. 7. When prior images become available for comparison, an addendum to this report will be generated. All CT scans at this facility use dose modulation, iterative reconstruction, and/or weight-based dosing when appropriate to reduce radiation dose to as low as reasonably achievable.
--- NOTE | 2016-09-01 11:14 | ED ORDER SUMMARY ---
..... Patient: SARA JEREZ OrderSheet [facility] VisitID: [id number] [place] [address] 55y, M Registration Date/Time: 09/01/2016 ORDER SHEET Weight: 145.1 kg (stated) Allergies: No Known Drug Allergy GENERAL ORDERS: Chest 2V Urgent (08:09/01/2016 Tra Poole) (Ack 8:35 TBergley) (8:55 LWhalen R.N.) CT Head wo Cont Urgent (:09/01/2016 Tra Poole) (Ack 8:35 TBergley) (8:55 LWhalen R.N.) CBC w Diff Urgent (:09/01/2016 Tra Poole) (Ack 8:35 TBergley) (8:55 LWhalen R.N.) CMP Urgent (:09/01/2016 Tra Poole) (Ack 8:35 TBergley) (8:55 LWhalen R.N.) UA-Culture if indicated Urgent (:09/01/2016 Tra Poole) (Ack 8:35 TBergley) (9:19 LWhalen R.N.) PT with INR Urgent (:09/01/2016 Tra Poole) (Ack 8:35 TBergley) (8:55 LWhalen R.N.) Lactate, Serum Urgent (:09/01/2016 Tra Poole) (Ack 8:35 TBergley) (8:55 LWhalen R.N.) Magnesium Urgent (:09/01/2016 Tra Poole) (Ack 8:35 TBergley) (8:55 LWhalen R.N.) TSH Urgent (:09/01/2016 Tra Poole) (Ack 8:35 TBergley) (8:55 LWhalen R.N.) Pulse oximeter (:09/01/2016 Tra Poole) (Ack 8:35 TBergley) (8:55 LWhalen R.N.) CT Abd/Pel w Cont (No) (Cr 1.7) Urgent (09:33 09/01/2016 [facility]) (Ack 9:43 TBergley) (10:02 TBergley) Call (Place call to): (Dr Barahona) (10:45 09/01/2016 [facility]) (Ack 10:47 TBergley) (11:10 TBergley) EKG - ER Stat (11:13 09/01/2016 [facility]) (Ack 11:16 TBergley) (11:33 TBergley) MEDICATION ORDERS: IV FLUIDS: IV NS : initial bolus 1000 mL (1000 mL/hr), then none - for X1 (NOW) (08:31 09/01/2016 Tra Poole) (9:20 LWhalalyson R.N.) Invanz IV 1 gm (NOW) (10:24 09/01/2016 [facility]) (Cancelled: Other11:08 [facility]) Flagyl IV 500 mg/100mL (NOW) (11:08 09/01/2016 [facility]) (11:24 LWhalalyson R.N.) Levofloxacin IV 500 mg/100mL (NOW) (11:09 09/01/2016 [facility]) (12:31 LWshashank R.N.) ORDER SHEET NOTES: [Electronically signed by Ryder Evans DO (13:43 09/01/2016)] [Electronically signed by Vipin Rahman R.N. (17:07 09/01/2016)] [Electronically locked/signed by Vipin Rahman R.N. (17:07 09/01/2016)]
--- NOTE | 2016-09-01 11:14 | ED CLINICAL REPORT ---
Clinical Report - Physicians/Mid Levels [facility] [address] [place] [address] 09/01/2016 8:06 Patient: SARA JEREZ Time Seen: 0815. Arrived- By private vehicle. Historian- patient and spouse. HISTORY OF PRESENT ILLNESS Chief Complaint: DIZZINESS and VERTIGO. Severity described as moderate at its maximum. When seen in the E.D., severity described as moderate. Modifying factors- relieved by nothing. Not worsened by anything. Described as a sense of rotation and feeling off balance. This started past 2 days and is still present (unchanged). It was abrupt in onset and has been constant but is not gone now. Patient was last known well (2 days ago). No nausea, vomiting, hearing loss, tinnitus or ear pain. (reports also having double vision that started around the same time. spouse reports patient more confused and does not recall where they were going. states he does not remember they can't go to [place] anymore because their insurnance won't cover it. Has hx of meningioma 4 years ago. Reports having bleed afterwards as a complication. Has indwelling cath for urinary retention and kidney stones). Similar symptoms previously: None. Recent medical care: The patient was seen recently in a clinic (recently diagnosed with UTI.). REVIEW OF SYSTEMS The patient has had fever, double vision, mild, constant abdominal pain. The pain is described as generalized and difficulty with urination. No weakness, head injury, chest pain, palpitations or black stools. No numbness, bloody stools, sore throat, cough or difficulty breathing. No diarrhea or skin rash. The patient has had difficulty walking. All systems otherwise negative, except as recorded above. PAST HISTORY See nurses notes. ( SURGERIES: Stone manipulation with lazer and lithotripsy - 1 month ago at [facility] [place] (also prior stones) Brain surgery - meningioma resection complicated by postoperative bleeding in the approx 2 week perioperative period (about 4 years ago)). Hypertension. Chronic obstructive pulmonary disease. Hyperlipidemia. Benign prostatic hypertrophy. Urinary calculi. Urinary tract infection. Medications: Albuterol Sulfate HFA Inhalation 2 puffs, as needed. Albuterol Sulfate Inhalation 1 unit dose, PRN. AmLODIPine Besylate Oral 5 mg, daily. Aspirin Oral (Tablet 81 mg) 1 tablet, daily. Atorvastatin Calcium Oral 20 mg, daily. Cipro Oral 500 mg, 2x a day. Cozaar Oral 50 mg, 2x a day. Eplerenone Oral (Tablet 50 mg) 1 tablet, daily. Flomax Oral (Capsule 0.4 mg) 1 capsule, daily. Fluticasone Furoate-Vilanterol Inhalation. HydrALAZINE HCl Oral (Tablet 10 mg) 1 tablet, daily. Irbesartan Oral 300 mg, daily. LamoTRIgine Oral (Tablet Dispersible 200 mg) 1 tablet, daily. Lipitor Oral 20 mg, daily. MetFORMIN HCl Oral 750mg , daily. Percocet Oral 5/325 mg, 4x a day. Pyridium Oral 200 mg, 3x a day. Ranitidine HCl Oral 150 mg, daily as needed. Triazolam Oral 0.25 mg, at bedtime (is out ). Allergies: No Known Drug Allergy. SOCIAL HISTORY Former smoker. No alcohol use or drug use. No recent travel. Is a local resident. ADDITIONAL NOTES The nursing notes have been reviewed. PHYSICAL EXAM Vital Signs: 09/01/2016 08:15 BP: 127/66. HR: 102. RR: 18. O2 saturation: 95%. Temp: 99.6 F. Appearance: Alert. No acute distress. (non toxic). Eyes: Pupils equal, round and reactive to light. Pupillary exam: Right pupil 3mm, round and reactive to light directly and consensually and with accommodation. Left pupil: 3mm, round and reactive to light directly and consensually and with accommodation. No nystagmus. Extraocular movements normal. ENT: Normal ENT inspection. TM's normal. Dry mucous membranes present. Pharynx normal. Neck: Normal inspection. Neck supple. No meningeal signs. CVS: Normal heart rate and rhythm. Heart sounds normal. Pulses normal. Respiratory: No respiratory distress. Breath sounds normal. Abdomen: Soft and nontender. No organomegaly. Back: Normal inspection. Skin: Skin warm and dry. Normal skin color. No rash. Normal skin turgor. Extremities: Extremities exhibit normal ROM. No lower extremity edema. Neuro: Alert. Oriented X 3. Mood/affect normal. Speech normal. No dysphasia or dysarthria. No cerebellar findings. No motor deficit. No sensory deficit. Reflexes normal. (negative HINTS exam. negative Reinaldo-Hallpike. Normal finger to nose. Normal [id number].). LABS, X-RAYS, AND EKG EKG: EKG time: (11:37). Normal sinus rhythm. Rate: 85. Normal P waves. Normal JUAN FRANCISCO. Normal QRS complex. Normal axis. Normal ST and T waves. The study has been interpreted contemporaneously by me. The EKG appears to be a good tracing. Chest X-ray: Normal lung markings present. Normal heart size. Mediastinum normal. Great vessels normal. No infiltrate. (free air under right hemidiaphragm). Views: PA and lateral. Technique: good. The X-rays were interpreted contemporaneously by me. Abdominal CT: IMPRESSION: 1. Multiple small foci of extraluminal gas within the peritoneal cavity suggestive of perforated viscus or an iatrogenic etiology. Given the patient's extensive zuluaga colonic diverticulosis, a perforated, but an inflamed diverticulum is most likely. Occult or early diverticulitis is not entirely excluded. 2. No evidence of peptic ulcer disease. 3. At least three left distal ureteral calculi and moderate hydroureteronephrosis. Given the patient's history of recent left lithotripsy, the chronicity of hydronephrosis is uncertain. Redundant course of the left ureter suggests chronic nature to the hydroureter. 4. Markedly enlarged prostate gland with a Richards catheter in the cranial most aspect of the prostatic urethra. Correlate with function and intended position. 5. Mild left pelvic adenopathy. Correlate with any prior CT scans. 6. Discussed with Dr. Evans in the emergency room. 7. When prior images become available for comparison, an addendum to this report will be generated. Study type: abdomen and pelvis. Abdominal CT performed with IV contrast. The study was independently viewed by me, interpreted by the radiologist and discussed with the radiologist. Laboratory Tests: UA-Culture if indicated: (BRUCE: 09/01/2016 09:15) ( MsgRcvd 09/01/2016 09:31) Final results Test Result Flag Units (Reference) URINE COLOR YELLOW URINE APPEARANCE CLEAR URINE GLUCOSE NEGATIVE (NEGATIVE) URINE BILIRUBIN NEGATIVE (NEGATIVE) URINE KETONE NEGATIVE (NEGATIVE) URINE SPECIFIC GRAVITY 1.025 (1.010-1.030) URINE PH 5.5 (5.0-8.0) URINE PROTEIN 1+ (NEGATIVE) URINE UROBILINOGEN 0.2 EU/dL (0.2-1.0) URINE NITRITE NEGATIVE (NEGATIVE) URINE BLOOD 2+ (NEGATIVE) URINE LEUK ESTERASE TRACE (NEGATIVE) URINE RBC 1-3 rbc/hpf (0-1) URINE WBC 1-3 wbc/hpf (0-1) URINE EPITHELIAL CELLS NONE SEEN EPI/hpf (0-5) URINE BACTERIA FEW (1+) (NONE SEEN) URINE COMMENT CULTURE INDICATED URINE CULTURES ARE SET-UP BASED ON THE FOLLOWING CRITERIA:POSITIVE NITRITEPOSITIVE LEUKOCYTE ESTERASEGREATER THAN 10 WHITE BLOOD CELLSMODERATE (2+) OR GREATER BACTERIA CBC w Diff: (BRUCE: 09/01/2016 08:45) ( MsgRcvd 09/01/2016 09:00) Final results Test Result Flag Units (Reference) WHITE BLOOD COUNT 9.9 K/uL (4.5-11.5) RED BLOOD COUNT 4.12 L M/uL (4.50-5.90) HEMOGLOBIN 11.6 L gm/dL (13.5-17.5) HEMATOCRIT 35.7 L % (41.0-53.0) MEAN CELL VOLUME 87 fL (80-100) MEAN CORPUSCULAR HGB 28 pg (26-34) MEAN CORPUSCULAR HGB CONC 33 g/dL (31-37) RED CELL DISTRIBUTION WIDTH 15.4 H % (11.6-14.8) PLATELET COUNT 336 K/uL (150-400) NEUTROPHIL % 70.6 % (50-75) LYMPH % 7.4 L % (25-40) MONO % 15.1 H % (3-14) EOSINOPHIL % 6.5 H % (0-4) BASOPHIL % 0.4 % (0-2) PT with INR: (BRUCE: 09/01/2016 08:45) ( MsgRcvd 09/01/2016 09:06) Final results Test Result Flag Units (Reference) INR 1.1 (0.8-1.2) Low Intensity Therapy: INR 1.5-2.0 PT range 18.5-23.1Mod.Intensity Therapy: INR 2.0-3.0 PT range 23.1-31.5High Intensity Therapy: INR 2.5-3.5 PT range 27.4-35.5High Intensity Therapy 2: INR 3.0-4.0 PT range 31.5-39.3 Lactate, Serum: (BRUCE: 09/01/2016 08:45) ( PrgRcvd 09/01/2016 09:16) Final results Test Result Flag Units (Reference) LACTIC ACID 1.1 mmol/L (0.4-2.0) CMP: (BRUCE: 09/01/2016 08:45) ( PrgRcvd 09/01/2016 09:22) Final results Test Result Flag Units (Reference) GLUCOSE 111 H mg/dL (70-110) BUN 27 H mg/dL (7-18) CREATININE 1.7 H mg/dL (0.6-1.3) Estimated GFR 44.70 mL/min Estimated GFR- 54.17 mL/min Note: Persistent reduction over 3 months in eGFR<60 mL/min/1.73 m2 defines CKD. Patients with eGFR values>=60 mL/min/1.73 m2 may also have CKD if evidence ofpersistent proteinuria. Additional information may be foundat www.kidney.org. SODIUM 139 mmol/L (136-145) POTASSIUM 4.3 mmol/L (3.5-5.1) CHLORIDE 104 mmol/L (98-107) CARBON DIOXIDE 25 mmol/L (21-32) CALCIUM 9.0 mg/dL (8.5-10.1) TOTAL PROTEIN 6.9 g/dL (6.4-8.2) ALBUMIN 2.6 L g/dL (3.3-5.0) BILIRUBIN, TOTAL 0.4 mg/dL (0.0-1.0) ALKALINE PHOSPHATASE 82 U/L (46-116) AST (SGOT) 30 U/L (15-37) ALT (SGPT) 31 U/L (12-78) MAGNESIUM 1.8 mg/dL (1.8-2.4) THYROID STIMULATING HORMONE 3.105 uIU/mL (0.30-3.74) . Pulse Oximetry: 09/01/2016 08:15 O2 saturation: 95%. (FIO2 - room air). Interpretation: normal. PROGRESS AND PROCEDURES Course of Care: the patient is a 55-year-old male with complex past medical history including meningioma and surgical removal approximately 4 years ago withcompetition of head bleed twice after the surgeryas well as urinary retention and uurolithiasis presenting for evaluation of dizziness which patient describes as being off balance. The patient has a otherwise reassuring examination however does have a concerning past medical history. Patient will be evaluated with CT scan including laboratory studies and urinalysis. Patient appears nontoxic. Patient with slightly dry mucous membranes. He concern for possible dehydration and other infectious etiologies. Laboratory studies and ordered. Patient will be signed out to the oncoming physician at the change of shift. Plans follow the patient's lab for studies and imaging as well as disposition. Discussed case with on-call health care provider, (Margot call placed 11:03 call returned 11:05). Reviewed test results. Agreed upon treatment plan. Health care provider will see patient in ED. Discussed case with hospitalist, (Wero call placed 11:08). Reviewed test results. Agreed upon treatment plan. Patient/family counseled. Old ED records reviewed. Disposition: Admitted to Acute Care. Condition: stable and guarded and improved. CLINICAL IMPRESSION Perforated abdominal viscus UTI - resolving Ureterolithiasis - left ureter. INSTRUCTIONS Drink plenty of fluids. Warnings: Further evaluation is necessary. It is very important to follow up with a physician. GENERAL WARNINGS: Return or contact your physician immediately if your condition worsens or changes unexpectedly, if not improving as expected, or if other problems arise. (Electronically signed by Ryder Evans DO 09/01/2016 13:43)
--- NOTE | 2016-09-01 11:14 | ED ORDER SUMMARY ---
..... Patient: SARA JEREZ OrderSheet [facility] VisitID: [id number] [place] [address] 55y, M Registration Date/Time: 09/01/2016 ORDER SHEET Weight: 145.1 kg (stated) Allergies: No Known Drug Allergy GENERAL ORDERS: Chest 2V Urgent (08:09/01/2016 Tra Poole) (Ack 8:35 TBergley) (8:55 LWhalen R.N.) CT Head wo Cont Urgent (:09/01/2016 Tra Poole) (Ack 8:35 TBergley) (8:55 LWhalen R.N.) CBC w Diff Urgent (:09/01/2016 Tra Poole) (Ack 8:35 TBergley) (8:55 LWhalen R.N.) CMP Urgent (:09/01/2016 Tra Poole) (Ack 8:35 TBergley) (8:55 LWhalen R.N.) UA-Culture if indicated Urgent (:09/01/2016 Tra Poole) (Ack 8:35 TBergley) (9:19 LWhalen R.N.) PT with INR Urgent (:09/01/2016 Tra Poole) (Ack 8:35 TBergley) (8:55 LWhalen R.N.) Lactate, Serum Urgent (:09/01/2016 Tra Poole) (Ack 8:35 TBergley) (8:55 LWhalen R.N.) Magnesium Urgent (:09/01/2016 Tra Poole) (Ack 8:35 TBergley) (8:55 LWhalen R.N.) TSH Urgent (:09/01/2016 Tra Poole) (Ack 8:35 TBergley) (8:55 LWhalen R.N.) Pulse oximeter (:09/01/2016 Tra Poole) (Ack 8:35 TBergley) (8:55 LWhalen R.N.) CT Abd/Pel w Cont (No) (Cr 1.7) Urgent (09:33 09/01/2016 [facility]) (Ack 9:43 TBergley) (10:02 TBergley) Call (Place call to): (Dr Barahona) (10:45 09/01/2016 [facility]) (Ack 10:47 TBergley) (11:10 TBergley) EKG - ER Stat (11:13 09/01/2016 [facility]) (Ack 11:16 TBergley) (11:33 TBergley) MEDICATION ORDERS: IV FLUIDS: IV NS : initial bolus 1000 mL (1000 mL/hr), then none - for X1 (NOW) (08:31 09/01/2016 Tra Poole) (9:20 LWhalalyson R.N.) Invanz IV 1 gm (NOW) (10:24 09/01/2016 [facility]) (Cancelled: Other11:08 [facility]) Flagyl IV 500 mg/100mL (NOW) (11:08 09/01/2016 [facility]) (11:24 LWhalalyson R.N.) Levofloxacin IV 500 mg/100mL (NOW) (11:09 09/01/2016 [facility]) (12:31 LWshashank R.N.) ORDER SHEET NOTES: [Electronically signed by Ryder Evans DO (13:43 09/01/2016)] [Electronically signed by Vipin Rahman R.N. (17:07 09/01/2016)] [Electronically locked/signed by Vipin Rahman R.N. (17:07 09/01/2016)]
--- NOTE | 2016-09-01 11:14 | ED NURSING NOTES ---
Clinical Report - Nurses [facility] [address] [place] [address] 09/01/2016 8:06 [id number] Triage time 08:15 Sep 01 2016. Acuity: LEVEL 3. Chief Complaint: HEADACHE, DIZZINESS, WEAKNESS, DIFFICULTY WALKING, CONFUSION and COUGH. MEETA COMA SCORE: [place] Coma Scale: 15- eyes open spontaneously (4); best verbal response- oriented x 4 (5); best motor response- obeys commands (6). --08:30 Vipin Rahman R.N. 08:15 09/01/16. BP: 127/66. HR: 102. RR: 18. O2 saturation: 95%. Temp: 99.6 F. Pain level now 0/10. --08:30 Vipin Rahman R.N. Weight: 145.1 kg stated. Height/Length: 73 inches Per Patient. BMI: 42.2. --08:24 Vipin Rahman R.N. Medications Albuterol Sulfate HFA Inhalation 2 puffs, as needed. Albuterol Sulfate Inhalation 1 unit dose, PRN. AmLODIPine Besylate Oral 5 mg, daily. Aspirin Oral (Tablet 81 mg) 1 tablet, daily. Atorvastatin Calcium Oral 20 mg, daily. Cipro Oral 500 mg, 2x a day. Cozaar Oral 50 mg, 2x a day. Eplerenone Oral (Tablet 50 mg) 1 tablet, daily. Flomax Oral (Capsule 0.4 mg) 1 capsule, daily. Fluticasone Furoate-Vilanterol Inhalation. HydrALAZINE HCl Oral (Tablet 10 mg) 1 tablet, daily. Irbesartan Oral 300 mg, daily. LamoTRIgine Oral (Tablet Dispersible 200 mg) 1 tablet, daily. Lipitor Oral 20 mg, daily. MetFORMIN HCl Oral 750mg , daily. Percocet Oral 5/325 mg, 4x a day. Pyridium Oral 200 mg, 3x a day. Ranitidine HCl Oral 150 mg, daily as needed. Triazolam Oral 0.25 mg, at bedtime (is out ). --08:18 Vipin Rahman R.N. Allergies No Known Drug Allergy. --08:18 Vipin Rahman R.N. History Arrived by private vehicle. Historian: patient. Accompanied by family. ( states that patient has some normal confusion since brain tumor but states has increased confusion. States having double vision and difficulty walking. Patient states feels like his brain isn't working with his legs and he gets dizzy. Patient states there is times he doesn't remember which his refers to such as being on his lap top and conversations. Patient is being treated for UTI and has an indwelling catheter.). He has had low grade fever and a cough. No weakness, difficulty breathing or skin rash. Denies muscle aches. PAST MEDICAL HX: Immunizations: up-to-date. SOCIAL HX: Former smoker, end date 1987. No alcohol use or drug use. SELF HARM ASSESSMENT: A self harm assessment was performed. The patient answered "no" to the question "Have you recently felt down, depressed, or hopeless?" and "Do you have thoughts of harming or killing yourself?". NUTRITIONAL RISK ASSESSMENT: The nutritional risk assessment revealed no deficiencies. FUNCTIONAL ASSESSMENT: Functional assessment: no impairments noted. LEARNING NEEDS ASSESSMENT: The learning needs assessment revealed no barriers. ABUSE ASSESSMENT: Abuse assessment: (yes) The patient was asked "Do you feel safe in your home?". FALL RISK ASSESSMENT: Fall risk assessment completed. Risk factors identified include dizziness and patient impairment of mobility. Fall interventions initiated. Patient placed in wheelchair. Side rails up x2. Brakes on Bed in low position. Patient visible from nurses' station. Family at bedside. Call light in reach of patient. Instructed not to get up without assistance. SKIN INTEGRITY ASSESSMENT: Skin integrity risk assessment completed. No skin integrity risk identified. --08:30 Vipin Rahman R.N. PROBLEMS: UTI - Urinary Tract Infection. Urinary Retention. Hematuria. Gastroesophageal Reflux Disease. Reflux. Seizure. Hypercholesterolemia. Hypertension. Brain Tumor. --08:19 Vipin Rahman R.N. ADDITIONAL SURGERIES: Brain tumor removal . Kidney stone removal . Knee Surgery. Sinus Surgery. --08:19 Vipin Rahman R.N. Interventions ID band on patient. --08:30 Vipin Rahman R.N. PHYSICAL ASSESSMENT To room via wheelchair. GENERAL / NEURO / PSYCH: Alert. Oriented X 4. Appears in no acute distress. HEENT: Pupils equal, round and reactive to light. No facial asymmetry noted. Mucous membranes are pink. RESPIRATORY: Respirations not labored. Cough productive of clear, white sputum. Chest nontender. Breath sounds within normal limits. GI / : ( Has a Richards with clear liquid. Normal BM last yesterday.). SKIN: Skin intact. Skin is warm and dry. Normal skin turgor. ( Lips dry.). --08:32 Vipin Rahman R.N. NURSING PROGRESS NOTES The plan of care for this patient has been created. Pulse oximeter and NIBP monitor placed on patient. Patient gowned. Head of bed elevated 75 degrees. Reassurance given. Call light placed in reach. Side rails up x 1. Bed placed in lowest position. Brakes of bed on. --08:33 Vipin Rahman R.N. <<STRICKEN ENTRY-- 09:05 09/01/16. BP: 122/71. HR: 95. --09:13 Lauren Sheikh --END STRIKE>> Change to Details. Taken when standing up --09:16 Kori Lauren <<STRICKEN ENTRY-- 09:07 09/01/16. BP: 140/86. HR: 100. --09:14 Lauren Sheikh --END STRIKE>> Change to Details. Taken when sitting --09:16 Geremiasmoises Lauren 09:05 09/01/16. BP: 122/71 (large adult cuff) taken on the right arm, via an automated monitor, while lying. HR: 95. --09:17 Lauren Sheikh 09:07 09/01/16. BP: 140/86 (large adult cuff) taken on the right arm, via an automated monitor, while sitting. HR: 100. --09:18 Kori Lauren 09:10 09/01/16. BP: 136/79 (large adult cuff) taken on the right arm, via an automated monitor, while standing. HR: 107. --09:19 Kori Lauren 08:54 09/01/2016 Site #1 started via IV in the left antecubital space with an 18g angiocath, with aseptic technique and good blood return; one attempt. Blood drawn: rainbow set. Labeled in the presence of the patient and sent to the lab. Saline lock flushed with 10 mL saline. --09:19 Vipin Rahman R.N. 09:15 09/01/2016 Started bag #1 1000 mL IV Fluids IV NS (Saline); at 1000 mL/hr over 1 hour(s) via site #1 via IV pump. Allergies verified and confirmed 5 rights. IV patency established. IV site checked: no pain, redness, or swelling. IV flushed thoroughly pre- and post-medication administration. --09:20 Vipin Rahman R.N. Catheterized urine collected with return of yellow-colored urine; sample sent to lab for urinalysis and culture. Specimen labeled in the presence of the patient. --09:22 Vipin Rahman R.N. ( Report given to Jimena LARSON). --12:39 Vipni Rahman R.N. 12:40 09/01/16. BP: 131/69. HR: 84. RR: 24. O2 saturation: 95%. 12:00 09/01/16. BP: 128/74. HR: 86. RR: 25. O2 saturation: 95%. 11:00 09/01/16. BP: 129/74. HR: 85. RR: 24. O2 saturation: 94%. 10:00 09/01/16. BP: 120/69. HR: 87. RR: 22. O2 saturation: 96%. 09:30 09/01/16. BP: 125/72. HR: 90. RR: 24. O2 saturation: 94%. --12:42 Vipin Rahman R.N. 10:54 09/01/2016 IV Fluids IV NS Discontinued: bag #1 infused. Total amount infused: 1000 mL. IV patency established. IV site checked: no pain, redness, or swelling. IV flushed thoroughly. --12:54 Vipin Rahman R.N. 11:19 09/01/2016 Started 500 mg of Flagyl (MetroNIDAZOLE in NaCl) IVPB in bag #1 100 mL; at 100 mL/hr over 1 hour(s) via site #1 via IV pump. Allergies verified and confirmed 5 rights. IV patency established. IV site checked: no pain, redness, or swelling. IV flushed thoroughly pre- and post-medication administration. --11:24 Vipin Rahman R.N. 12:28 09/01/2016 Flagyl IVPB Discontinued: bag #1 infused. Total amount infused: 100 mL. IV patency established. IV site checked: no pain, redness, or swelling. IV flushed thoroughly. --12:53 Vipin Rahman R.N. 12:31 09/01/2016 Started 500 mg of Levofloxacin IVPB in bag #1 100 mL; at 100 mL/hr over 1 hour(s) via site #1 via IV pump. Allergies verified and confirmed 5 rights. IV patency established. IV site checked: no pain, redness, or swelling. IV flushed thoroughly pre- and post-medication administration. --12:31 Vipin Rahman R.N. 12:44 09/01/2016 Levofloxacin IVPB Continued: upon transfer at the rate of 100 mL/hr. 90 mL remaining bag #1. IV patency established. IV site checked: no pain, redness, or swelling. IV flushed thoroughly. --12:54 Vipin Rahman R.N. DISPOSITION / DISCHARGE Departure time: 12:45 Sep 01 2016. Admitted to Acute Care. --12:52 Vipin Rahman R.N. 12:40 09/01/16. BP: 131/69. HR: 84. RR: 24. O2 saturation: 95%. --12:52 Vipin Rahman R.N. Locked/Released at 09/01/2016 17:07 by Vipin Rahman R.N.
[2016-09-01] MEDS ORDERED: ALBUTEROL HFA60 DOSE IN (11:57)
[2016-09-01] MEDS ORDERED: ATORVASTATIN CA20 MG PO (11:58)
[2016-09-01] MEDS ORDERED: ASPIRIN ADULT L81 MG PO (11:58)
[2016-09-01] MEDS ORDERED: AMLODIPINE BESYL5 MG PO (11:58)
[2016-09-01] MEDS ORDERED: COZAAR50 MG PO (11:59)
[2016-09-01] MEDS ORDERED: INSPRA50 MG PO (11:59)
[2016-09-01] MEDS ORDERED: CIPRO500 MG PO (11:59)
[2016-09-01] MEDS ORDERED: FLOVENT DISKU250 MCG (12:00)
[2016-09-01] MEDS ORDERED: HYDRALAZINE HCL10 MG PO (12:00)
[2016-09-01] MEDS ORDERED: FLOMAX0.4 MG PO (12:00)
[2016-09-01] MEDS ORDERED: LIPITOR20 MG PO (12:01)
[2016-09-01] MEDS ORDERED: AVAPRO300 MG PO (12:01)
[2016-09-01] MEDS ORDERED: LAMOTRIGINE100 MG PO (12:01)
[2016-09-01] MEDS ORDERED: PERCOCET1 TA1 PO (12:02)
[2016-09-01] MEDS ORDERED: METFORMIN HCL500 MG PO (12:02)
[2016-09-01] MEDS ORDERED: PYRIDIUM200 MG PO (12:02)
[2016-09-01] MEDS ORDERED: RANITIDINE HCL150 MG PO (12:03)
--- NOTE | 2016-09-01 12:55 | Consultation Report ---
History Chief Complaint Dizziness History of Present Illness 55-year-old male who was brought to [facility] emergency room by his , complaining of dizziness and confusion. During his workup, a chest x- ray was obtained in the emergency room at [facility]. Chest x-ray revealed free air underneath the right diaphragm. CT of his head did not show an acute process, but the CT of the abdomen showed scattered pockets of free air under the right diaphragm and it was also noticed that the patient had diverticulosis of the transverse colon. It should be noted that the patient did not complain of any abdominal symptoms during his evaluation. Patient denies any abdominal pain, excessive use of aspirin or nonsteroidal anti -inflammatories, hematemesis, melenic or bright red blood per rectum, or shoulder discomfort. Patient's last colonoscopy was over 10 years ago in [place]. Patient does have a history of having been treated for diverticulitis the past. Patient has no prior history of peptic ulcer disease Patient History 1. Perforated abdominal viscus Social History , 1 son and 1 daughter alive and well. The patient states that he stopped smoking in 1987. Patient states that he stopped using drugs and using alcohol in 1985. 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 No service. FAMILY HISTORY: Mother alive at age 75. History of hypertension, heart disease, abdominal aortic aneurysm, renal disease. Father alive at age 76. History of parkinsonism and hypertension. One brother . History of MS, etiology of unknown. 1 sister alive and well. PAST MEDICAL/SURGICAL HISTORY: Resection of frontal lobe meningioma 4 years ago [facility]. This hospitalization was complicated by 2 postoperative bleeding episodes resulting in left-sided weakness and a hospitalization of 6 weeks. Patient has decreased memory function since that episode. Status post laparoscopic cholecystectomy. Status post left knee meniscectomy. Status post sinus surgery. History of hypertension Medications and Allergies Medications Current Medications Sig/Melani Start time Last Medication Dose Route Stop Time Status Admin Amlodipine Besylate 5 MG DAILY 09/02 899 UNV PO Hydralazine HCl 10 MG DAILY 09/02 899 UNV PO Lamotrigine 200 MG DAILY 09/02 899 UNV PO Losartan Potassium 50 MG DAILY 09/02 899 UNV PO Tamsulosin HCl 0.4 MG QHS 09/01 2100 UNV PO Atorvastatin Calcium 20 MG QPM 09/01 1800 UNV PO Albuterol See Dose RTQID 09/01 1600 UNi Insts (1) IN Metronidazole 500 MG TID 09/01 1400 AC PO 09/01 1600 Hydromorphone HCl See Dose ONCE PRN 09/01 1145 AC Insts (2) IV 09/01 1600 Ondansetron HCl 4 MG Q4H PRN 09/01 1145 AC IV Sodium Chloride 1,000 ML ASDIRECTED 09/01 1145 AC IV Dose Instructions: (1)Albuterol: 1 - 2 PUFFS (2)Hydromorphone HCl: 0.5-1 MG Allergies Coded Allergies: No Known Drug Allergy (09/01/16) Review of Systems Other Patient denies history of hepatitis, jaundice, remitted fever, heart murmurs, requiring antibiotics, bleeding tendencies, or blood transfusions. Remaining 12 point review of systems negative according to patient. Patient does have occasional focal seizures. Last seizure approximately 9 months ago. Physical Exam Vital Signs / I&Os Afebrile, stable vital signs, see nurse's notes General Appearance Alert, Oriented X3, Cooperative, No acute distress HEENT Normal exam, Atraumatic, PERRLA, EOMI, Moist mucous membranes Lungs Clear to auscultation Neck No JVD, No masses, No thyromegaly, No lymphadenopathy Cardiovascular Regular rate and rhythm Abdomen Normal bowel sounds, Soft, No tenderness, No guarding, No masses, No hepatosplenomegaly, obese. No tympany to percussion Extremities No cyanosis, No clubbing, 2+ pitting edema pretibial ankle region. 3 + popliteal pulses bilaterally. Skin warm and dry. No peripheral cyanosis Neurological No lateralizing signs Psych/Mental Status Mental status normal LAB Results Laboratory Tests 09/01 09/01 09/01 0845 0845 0915 Chemistry Plasma Sodium (136 - 145 mmol/L) 139 Plasma Potassium (3.5 - 5.1 mmol/L) 4.3 Plasma Chloride (98 - 107 mmol/L) 104 CO2 (Enzymatic) (21 - 32 mmol/L) 25 BUN (7 - 18 mg/dL) 27 Creatinine (0.6 - 1.3 mg/dL) 1.7 Est GFR ( Amer) (mL/min) 54.17 Est GFR (Non-Af Amer) (mL/min) 44.70 Glucose (70 - 110 mg/dL) 111 Lactic Acid (0.4 - 2.0 mmol/L) 1.1 Plasma Calcium (8.5 - 10.1 mg/dL) 9.0 Plasma Magnesium (1.8 - 2.4 mg/dL) 1.8 Total Bilirubin (0.0 - 1.0 mg/dL) 0.4 AST (15 - 37 U/L) 30 ALT (12 - 78 U/L) 31 Alkaline Phosphatase (46 - 116 U/L) 82 Total Protein (6.4 - 8.2 g/dL) 6.9 Albumin (3.3 - 5.0 g/dL) 2.6 TSH 3rd Generation (0.30 - 3.74 uIU/mL) 3.105 Coagulation INR (0.8 - 1.2) 1.1 Hematology WBC (4.5 - 11.5 K/uL) 9.9 RBC (4.50 - 5.90 M/uL) 4.12 Hgb (13.5 - 17.5 gm/dL) 11.6 Hct (41.0 - 53.0 %) 35.7 MCV (80 - 100 fL) 87 MCH (26 - 34 pg) 28 RDW (11.6 - 14.8 %) 15.4 Neut % (Auto) (50 - 75 %) 70.6 Lymph % (Auto) (25 - 40 %) 7.4 [place] % (Auto) (3 - 14 %) 15.1 Eos % (Auto) (0 - 4 %) 6.5 Baso % (Auto) (0 - 2 %) 0.4 Plt Count, EDTA (150 - 400 K/uL) 336 PUBS MCHC (31 - 37 g/dL) 33 Urines Urine Color YELLOW Urine Appearance CLEAR Urine pH (5.0 - 8.0) 5.5 Ur Specific [place] (1.010 - 1.030) 1.025 Urine Protein (NEGATIVE) 1+ Urine Ketones (NEGATIVE) NEGATIVE Urine Blood (NEGATIVE) 2+ Urine Nitrite (NEGATIVE) NEGATIVE Urine Bilirubin (NEGATIVE) NEGATIVE Urine Urobilinogen (0.2 - 1.0 EU/dL) 0.2 Ur Leukocyte Esterase (NEGATIVE) TRACE Urine RBC (0 - 1 rbc/hpf) 1-3 Urine WBC (0 - 1 wbc/hpf) 1-3 Ur Epithelial Cells (0 - 5 EPI/hpf) NONE SEEN Urine Bacteria (NONE SEEN) FEW (1+) Urine Glucose (NEGATIVE) NEGATIVE Urine Comment CULTURE INDICATED Microbiology Date/Time Procedure - Status Source Growth 09/01 0915 Urine Culture - RECD URINE CATH Imaging Small pockets of free air in the right diaphragm. Transverse colon diverticulosis. Assessment and Plan Problem List 1. Perforated abdominal viscus Plan Patient is presently asymptomatic from the free air under his diaphragm. We will treat this conservatively making the patient n.p.o., IV antibiotics. When the patient begins passing flatus, we will switch his antibiotics over to oral presuming that he had a microperforation of one of his diverticuli. When he passes flatus we will start him on a clear liquid diet. He can be then eventually be discharged home on his oral antibiotics and a clear liquid diet if he tolerates this 48 hours in the hospital. Followup with [facility] in one week.
[2016-09-01 13:16] VITALS: BP 109/84
--- NOTE | 2016-09-01 13:32 | HISTORY AND PHYSICAL ---
ADMITTED: 09/01/2016 CHIEF COMPLAINT: 1. Weakness HISTORY OF PRESENT ILLNESS: This is a 55-year-old white male who had kidney stone with lithotripsy 1 month ago and put a Wall Richards in and removal of the stent. The patient was doing okay until 1 week ago developed weakness, some kind of confusion, dizzy, double vision and started eating and not able to eat and drink, had no nausea, but vomited once due to cough. No diarrhea, no constipation. The patient came for further evaluation in emergency and incidentally was found to have free air in the right upper quadrant and confirmed with a CT scan and admitted for the treatment of diverticulitis because the patient had history of diverticulitis. MEDICAL/SURGICAL HISTORY: Past medical history: Remarkable for hypertension, gastroesophageal reflux disease, diverticulitis, brain meningioma with surgery and end up in a stroke, BPH, hyperlipidemia. Surgical history: Remarkable for meningiectomy and gallbladder removal. Last hospitalization was 4 years ago for brain surgery. MEDICATIONS: 1. Albuterol 2 puffs as needed 4 times a day. 2. Amlodipine 5 mg daily. 3. Aspirin 81 mg daily. 4. Lipitor 20 mg daily. 5. Cozaar 50 mg twice a day. 6. Eplerenone 50 mg once a day. 7. Flomax 0.4 mg once a day. 8. Hydralazine 10 mg once a day. 9. Irbesartan 300 mg daily. 10. Lamictal 200 mg daily. 11. Metformin 750 daily. 12. Ranitidine 150 mg daily. ALLERGIES: 1. NO KNOWN DRUG ALLERGY. SOCIAL HISTORY: The patient is , has 2 kids, lives with his . No history of alcohol or drug or smoking. FAMILY HISTORY: Remarkable for coronary artery disease and hypertension. REVIEW OF SYSTEMS: Has been losing weight recently. Complains of cough. No runny nose or congestion or sore throat. No shortness of breath, heart racing or chest pain. No gastrointestinal symptoms as described above. The patient has a Richards in for the kidney stone, also complained of multiple joint pain and back pain, tingling, numbness in the extremities. No localized weakness. No headaches. No dizziness. No syncope. PHYSICAL EXAMINATION: VITAL SIGNS: Blood pressure 127/66, pulse is 100, respirations 18, and oxygen is 95% on room air, temperature is 99.6. GENERAL APPEARANCE: Well developed, well nourished, good body build, no acute distress at this moment. HEENT: Ears: Normal tympanic membranes. Mouth: Normal hypopharynx, no exudation, no erythema. NECK: Supple. No JVD. No carotid bruit. No palpable mass. SKIN: Warm and dry with good turgor. LUNGS: Clear to auscultation. No rhonchi or wheezing or crackles. HEART: Regular S1, S2. No murmur. No S3 was heard. ABDOMEN: Soft, nontender. Bowel sounds are positive. No organomegaly was appreciated. EXTREMITIES: No edema. Good peripheral pulses. No signs of DVT or cyanosis. MUSCULOSKELETAL: Grossly within normal limits. NEUROLOGIC: Alert and oriented x3. Cranial nerves are grossly intact. No motor deficits. Pupils are equal, round, and reactive to light. Extraocular movements are intact. No nystagmus. No cerebellar signs. Deep tendon reflexes are bilateral. LAB/IMAGING: UA is 2+ leukocyte esterase, other than that unremarkable but culture is indicated. White blood count is 9.9, hemoglobin is 11.6, hematocrit is 35.7, platelet count is 336. INR is 1.1. Lactic acid is 1.1, glucose 111, BUN is 27, creatinine is 1.7. Sodium is 134, potassium is 4.3, chloride is 104, CO2 is 25, calcium is 9. Liver enzymes unremarkable. Magnesium is 1.8, and TSH is 3. IMPRESSION: 1. Diverticulitis. 2. Hypertension. 3. Gastroesophageal reflux disease. 4. Status post stroke and meningioma. PLAN: The patient will be admitted to acute care inpatient and then be n.p.o. with IV Levaquin and Flagyl, IV hydration and no need for pain medication. Surgical consultation was already obtained and orders was written by Dr. Frost. I will just write the patient's medications at home. The patient will follow up with surgery and us in the hospital.
[2016-09-01 13:44] VITALS: BP 124/67
[2016-09-01] MEDS ORDERED: HALCION EQUI0.125 MG SL (16:36)
[2016-09-01] MEDS ORDERED: ALDACTONE25 MG PO (16:45)
--- NOTE | 2016-09-01 17:07 | ED MAR SUMMARY ---
..... Medication Administration Record [facility] [address] [place] [address] Patient: SARA JEREZ Visit ID: [id number] 55y, M Weight: 145.1 kg Height/Length: 73 in BMI: 42.2 ALLERGIES: No Known Drug Allergy Start 09:15 09/01/2016 Vipin Rahman R.N., Stop 10:54 09/01/2016 Vipin Rahman R.N. Medication Administered: IV NS (SALINE), Dose: IV Fluids over 1 hour(s), Rate: 1000 mL/hr, Dispensed: 1000 mL bag, Site: #1 left AC. Medication Ordered: IV NS : initial bolus 1000 mL (1000 mL/hr), then none - for X1 (NOW). Start 11:19 09/01/2016 Vipin Rahman R.N., Stop 12:28 09/01/2016 Vipin Rahman R.N. Medication Administered: FLAGYL [IVPB] (METRONIDAZOLE IN NACL), Dose: 500 mg IVPB over 1 hour(s), Rate: 100 mL/hr, Dispensed: 100 mL bag, Site: #1 left AC. Medication Ordered: Flagyl IV 500 mg/100mL (NOW). Start 12:31 09/01/2016 Vipin Rahman R.N., Continued Upon Transfer 12:44 09/01/2016 Vipin Rahman R.N. Medication Administered: LEVOFLOXACIN [IVPB], Dose: 500 mg IVPB over 1 hour(s), Rate: 100 mL/hr, Dispensed: 100 mL bag, Site: #1 left AC. Medication Ordered: Levofloxacin IV 500 mg/100mL (NOW).
--- NOTE | 2016-09-01 17:07 | ED MAR SUMMARY ---
..... Medication Administration Record [facility] [address] [place] [address] Patient: SARA JEREZ Visit ID: [id number] 55y, M Weight: 145.1 kg Height/Length: 73 in BMI: 42.2 ALLERGIES: No Known Drug Allergy Start 09:15 09/01/2016 Vipin Rahman R.N., Stop 10:54 09/01/2016 Vipin Rahman R.N. Medication Administered: IV NS (SALINE), Dose: IV Fluids over 1 hour(s), Rate: 1000 mL/hr, Dispensed: 1000 mL bag, Site: #1 left AC. Medication Ordered: IV NS : initial bolus 1000 mL (1000 mL/hr), then none - for X1 (NOW). Start 11:19 09/01/2016 Vipin Rahman R.N., Stop 12:28 09/01/2016 Vipin Rahman R.N. Medication Administered: FLAGYL [IVPB] (METRONIDAZOLE IN NACL), Dose: 500 mg IVPB over 1 hour(s), Rate: 100 mL/hr, Dispensed: 100 mL bag, Site: #1 left AC. Medication Ordered: Flagyl IV 500 mg/100mL (NOW). Start 12:31 09/01/2016 Vipin Rahman R.N., Continued Upon Transfer 12:44 09/01/2016 Vipin Rahman R.N. Medication Administered: LEVOFLOXACIN [IVPB], Dose: 500 mg IVPB over 1 hour(s), Rate: 100 mL/hr, Dispensed: 100 mL bag, Site: #1 left AC. Medication Ordered: Levofloxacin IV 500 mg/100mL (NOW).
--- NOTE | 2016-09-01 17:07 | ED DISCHARGE INSTRUCTIONS ---
Patient: SARA JEREZ General Instructions [facility] VisitID: [id number] [address] [place] [address] 55y, M Registration Date/Time: 09/01/2016 Perforated abdominal viscus UTI - resolving Ureterolithiasis - left ureter. INSTRUCTIONS Drink plenty of fluids. Warnings: Further evaluation is necessary. It is very important to follow up with a physician. GENERAL WARNINGS: Return or contact your physician immediately if your condition worsens or changes unexpectedly, if not improving as expected, or if other problems arise. (Electronically signed by Ryder Evans DO 09/01/2016 13:43)
--- NOTE | 2016-09-01 17:07 | ED DISCHARGE INSTRUCTIONS ---
Patient: SARA JEREZ General Instructions [facility] VisitID: [id number] [address] [place] [place] [address] 55y, M Registration Date/Time: 09/01/2016 Perforated abdominal viscus UTI - resolving Ureterolithiasis - left ureter. INSTRUCTIONS Drink plenty of fluids. Warnings: Further evaluation is necessary. It is very important to follow up with a physician. GENERAL WARNINGS: Return or contact your physician immediately if your condition worsens or changes unexpectedly, if not improving as expected, or if other problems arise. (Electronically signed by Ryder Evans DO 09/01/2016 13:43)
--- NOTE | 2016-09-01 17:07 | ED MED RECONCILIATION SUMMARY ---
Patient: SARA JEREZ Medication Reconciliation Report [facility] VisitID: [id number] [address] [place] [address] 55y, M Registration Date/Time: 09/01/2016 Weight: 145.1 kg Height/Length: 73 in. BMI: 42.2 ALLERGIES: No Known Drug Allergy The patient's Home Medications are listed below: THE FOLLOWING MEDICATIONS NEED TO BE RECONCILED: Albuterol Sulfate HFA Inhalation 2 puffs Albuterol Sulfate Inhalation 1 unit dose, PRN AmLODIPine Besylate Oral 5 mg, daily Aspirin Oral (81 mg) 1 tablet, daily Atorvastatin Calcium Oral 20 mg, daily Cipro Oral 500 mg, 2x a day Cozaar Oral 50 mg, 2x a day Eplerenone Oral (50 mg) 1 tablet, daily Flomax Oral (0.4 mg) 1 capsule, daily Fluticasone Furoate-Vilanterol Inhalation HydrALAZINE HCl Oral (10 mg) 1 tablet, daily Irbesartan Oral 300 mg, daily LamoTRIgine Oral (200 mg) 1 tablet, daily Lipitor Oral 20 mg, daily MetFORMIN HCl Oral 750mg , daily Percocet Oral 5/325 mg, 4x a day Pyridium Oral 200 mg, 3x a day Ranitidine HCl Oral 150 mg, daily Triazolam Oral 0.25 mg, at bedtime, is out The source(s) of the original Home Medication information: Not obtained. The following Medications were given to the patient in the Emergency Department: IV NS IV Fluids bolus 0, then 1000 mL/hr, administered: 09/01/2016 9:15:00 AM Flagyl [IVPB] IVPB bolus 0, then 500 mg 100 mL/hr, administered: 09/01/2016 11:19:00 AM Levofloxacin [IVPB] IVPB bolus 0, then 500 mg 100 mL/hr, administered: 09/01/2016 12:31:00 PM The following Medications were prescribed to the patient: None.
--- NOTE | 2016-09-01 17:07 | ED MED RECONCILIATION SUMMARY ---
Patient: SARA JEREZ Medication Reconciliation Report [facility] VisitID: [id number] [address] [place] [address] 55y, M Registration Date/Time: 09/01/2016 Weight: 145.1 kg Height/Length: 73 in. BMI: 42.2 ALLERGIES: No Known Drug Allergy The patient's Home Medications are listed below: THE FOLLOWING MEDICATIONS NEED TO BE RECONCILED: Albuterol Sulfate HFA Inhalation 2 puffs Albuterol Sulfate Inhalation 1 unit dose, PRN AmLODIPine Besylate Oral 5 mg, daily Aspirin Oral (81 mg) 1 tablet, daily Atorvastatin Calcium Oral 20 mg, daily Cipro Oral 500 mg, 2x a day Cozaar Oral 50 mg, 2x a day Eplerenone Oral (50 mg) 1 tablet, daily Flomax Oral (0.4 mg) 1 capsule, daily Fluticasone Furoate-Vilanterol Inhalation HydrALAZINE HCl Oral (10 mg) 1 tablet, daily Irbesartan Oral 300 mg, daily LamoTRIgine Oral (200 mg) 1 tablet, daily Lipitor Oral 20 mg, daily MetFORMIN HCl Oral 750mg , daily Percocet Oral 5/325 mg, 4x a day Pyridium Oral 200 mg, 3x a day Ranitidine HCl Oral 150 mg, daily Triazolam Oral 0.25 mg, at bedtime, is out The source(s) of the original Home Medication information: Not obtained. The following Medications were given to the patient in the Emergency Department: IV NS IV Fluids bolus 0, then 1000 mL/hr, administered: 09/01/2016 9:15:00 AM Flagyl [IVPB] IVPB bolus 0, then 500 mg 100 mL/hr, administered: 09/01/2016 11:19:00 AM Levofloxacin [IVPB] IVPB bolus 0, then 500 mg 100 mL/hr, administered: 09/01/2016 12:31:00 PM The following Medications were prescribed to the patient: None.
[2016-09-01 18:46] VITALS: BP 143/78
[2016-09-01 22:14] VITALS: BP 145/84
[2016-09-02 02:40] VITALS: BP 112/63
[2016-09-02 06:49] VITALS: BP 125/78
--- NOTE | 2016-09-02 08:50 | Progress Note ---
Subjective General This is a 55-year-old white male who had kidney stone with lithotripsy 1 month ago and put a Wall Richards in and removal of the stent. The patient was doing okay until 1 week ago developed weakness, some kind of confusion, dizzy, double vision and started eating and not able to eat and drink, had no nausea, but vomited once due to cough. No diarrhea, no constipation. The patient came for further evaluation in emergency and incidentally was found to have free air in the right upper quadrant and confirmed with a CT scan and admitted for the treatment of diverticulitis because the patient had history of diverticulitis. Doing ok no abd. pain, no nausea or vomiting, had small BM this morning, no fever or chills, no cp or dyspnea, Review of system: GI: Negative for abdominal pain nausea or vomiting Constitutional: No fever no chills This procedure system: Negative for chest pain or dyspnea Physical Exam Vital Signs / I&Os Vital Signs Date Time Temp Pulse Resp B/P Pulse O2 O2 Flow FiO2 Ox Delivery Rate 09/02 0809 125/79 09/02 0649 99.1 78 18 125/78 95 09/02 0240 99.3 80 20 112/63 93 CPAP 09/01 2214 98.8 78 20 145/84 96 Room Air 09/01 2045 Room Air 09/01 1846 98.2 84 20 143/78 94 Room Air 09/01 1344 124/67 09/01 1316 99.7 78 20 109/84 96 Room Air I&O 09/02 0000 09/01 1600 09/01 0800 Intake Total 0 0 Output Total 720 50 Balance -720 -50 General Appearance No acute distress Lungs Clear to auscultation Neck Supple Cardiovascular Regular rate and rhythm, Normal S1 and S2, No murmurs, gallops, rubs Abdomen Normal bowel sounds, Soft, No tenderness Extremities No edema Skin No Rashes Psych/Mental Status Mental status normal LAB Results Laboratory Tests 09/02 09/01 0518 0915 Chemistry Plasma Sodium (136 - 145 mmol/L) 142 Plasma Potassium (3.5 - 5.1 mmol/L) 4.2 Plasma Chloride (98 - 107 mmol/L) 108 CO2 (Enzymatic) (21 - 32 mmol/L) 24 BUN (7 - 18 mg/dL) 20 Creatinine (0.6 - 1.3 mg/dL) 1.4 Est GFR ( Amer) (mL/min) >60 Est GFR (Non-Af Amer) (mL/min) 55.92 Glucose (70 - 110 mg/dL) 105 Plasma Calcium (8.5 - 10.1 mg/dL) 8.4 Hematology WBC (4.5 - 11.5 K/uL) 8.7 RBC (4.50 - 5.90 M/uL) 3.89 Hgb (13.5 - 17.5 gm/dL) 11.1 Hct (41.0 - 53.0 %) 34.0 MCV (80 - 100 fL) 87 MCH (26 - 34 pg) 28 RDW (11.6 - 14.8 %) 15.4 Neut % (Auto) (50 - 75 %) 69.7 Lymph % (Auto) (25 - 40 %) 10.4 [place] % (Auto) (3 - 14 %) 13.3 Eos % (Auto) (0 - 4 %) 6.3 Baso % (Auto) (0 - 2 %) 0.3 Plt Count, EDTA (150 - 400 K/uL) 326 PUBS MCHC (31 - 37 g/dL) 33 Urines Urine Color YELLOW Urine Appearance CLEAR Urine pH (5.0 - 8.0) 5.5 Ur Specific [place] (1.010 - 1.030) 1.025 Urine Protein (NEGATIVE) 1+ Urine Ketones (NEGATIVE) NEGATIVE Urine Blood (NEGATIVE) 2+ Urine Nitrite (NEGATIVE) NEGATIVE Urine Bilirubin (NEGATIVE) NEGATIVE Urine Urobilinogen (0.2 - 1.0 EU/dL) 0.2 Ur Leukocyte Esterase (NEGATIVE) TRACE Urine RBC (0 - 1 rbc/hpf) 1-3 Urine WBC (0 - 1 wbc/hpf) 1-3 Ur Epithelial Cells (0 - 5 EPI/hpf) NONE SEEN Urine Bacteria (NONE SEEN) FEW (1+) Urine Glucose (NEGATIVE) NEGATIVE Urine Comment CULTURE INDICATED Microbiology Date/Time Procedure - Status Source Growth 09/01 0915 Urine Culture - RECD URINE CATH Assessment and Plan Problem List 1. Perforated abdominal viscus Plan consider start clear liquid diet and oral abx since had BM today 2. HTN (hypertension) Plan controlled continue current meds 3. GERD (gastroesophageal reflux disease) Plan controlled continue PPI
--- NOTE | 2016-09-02 10:03 | Progress Note ---
Subjective General 55-year-old male, hospital day #1 admission for free air under the right diaphragm. Asymptomatic. Passing flatus and having bowel movements. No shoulder discomfort or abdominal discomfort. No nausea or vomiting. Physical Exam Vital Signs / I&Os Vital Signs Date Time Temp Pulse Resp B/P Pulse O2 O2 Flow FiO2 Ox Delivery Rate 09/02 0809 125/79 09/02 0649 99.1 78 18 125/78 95 09/02 0240 99.3 80 20 112/63 93 CPAP 09/01 2214 98.8 78 20 145/84 96 Room Air 09/01 2045 Room Air 09/01 1846 98.2 84 20 143/78 94 Room Air 09/01 1344 124/67 09/01 1316 99.7 78 20 109/84 96 Room Air I&O 09/01 0800 09/01 1600 09/02 0000 Intake Total 0 0 Output Total 50 720 Balance -50 -720 General Appearance Alert, Oriented X3, Cooperative, No acute distress, obese HEENT PERRLA, EOMI, Moist mucous membranes Lungs Clear to auscultation Neck No JVD, No masses, No thyromegaly, No lymphadenopathy, 2+ carotid pulse wo bruit Cardiovascular Regular rate and rhythm Abdomen Normal bowel sounds, Soft, No tenderness, No guarding, No rebound (obese ), distended abdomen. Obese. Nontympanitic Extremities No cyanosis, No clubbing, No edema, 4+ bilateral popliteal pulses Skin warm and dry Neurological No lateralizing signs Psych/Mental Status Mental status normal LAB Results Laboratory Tests 09/02 0518 Chemistry Plasma Sodium (136 - 145 mmol/L) 142 Plasma Potassium (3.5 - 5.1 mmol/L) 4.2 Plasma Chloride (98 - 107 mmol/L) 108 CO2 (Enzymatic) (21 - 32 mmol/L) 24 BUN (7 - 18 mg/dL) 20 Creatinine (0.6 - 1.3 mg/dL) 1.4 Est GFR ( Amer) (mL/min) >60 Est GFR (Non-Af Amer) (mL/min) 55.92 Glucose (70 - 110 mg/dL) 105 Plasma Calcium (8.5 - 10.1 mg/dL) 8.4 Hematology WBC (4.5 - 11.5 K/uL) 8.7 RBC (4.50 - 5.90 M/uL) 3.89 Hgb (13.5 - 17.5 gm/dL) 11.1 Hct (41.0 - 53.0 %) 34.0 MCV (80 - 100 fL) 87 MCH (26 - 34 pg) 28 RDW (11.6 - 14.8 %) 15.4 Neut % (Auto) (50 - 75 %) 69.7 Lymph % (Auto) (25 - 40 %) 10.4 [place] % (Auto) (3 - 14 %) 13.3 Eos % (Auto) (0 - 4 %) 6.3 Baso % (Auto) (0 - 2 %) 0.3 Plt Count, EDTA (150 - 400 K/uL) 326 PUBS MCHC (31 - 37 g/dL) 33 Assessment and Plan Problem List 1. Perforated abdominal viscus Plan Start clear liquid diet and oral antibiotics. If patient tolerates, then start full liquid diet tomorrow. Patient may be discharged on full liquid diet and oral antibiotics for 14 days, then low residue diet. Followup with primary care provider, or with [facility] in one week for further evaluation.
[2016-09-02 11:20] VITALS: BP 127/69
[2016-09-02 19:02] VITALS: BP 124/62
[2016-09-02 22:19] VITALS: BP 129/79
[2016-09-03 02:17] VITALS: BP 153/90
[2016-09-03 05:47] VITALS: BP 158/85
[2016-09-03 07:51] VITALS: BP 158/85
[2016-09-03] MEDS ORDERED: FLAGYL500 MG PO (08:05)
[2016-09-03] MEDS ORDERED: LEVAQUIN500 MG PO (08:05)
--- NOTE | 2016-09-03 09:22 | DISCHARGE SUMMARY ---
ADMIT DATE: 09/01/2016 DISCHARGE DATE: 09/03/2016 DISCHARGE DIAGNOSES: 1. Perforated abdominal viscus, treated conservatively 2. Hypertension 3. Gastroesophageal reflux disease BRIEF HISTORY: This is a 55-year-old white male who was admitted on 04/03/2016. The patient had a kidney stone with lithotripsy 1 month before the admission with a Richards and also stent placement. About 1 week ago, the patient developed weakness, confusion, and dizzy with double vision and started not to eat or drink, had no nausea, no vomiting, but has some cough. No diarrhea, no constipation, so the patient came to the emergency for further evaluation and CT of the abdomen showed the patient has free air and it was assumed it might be diverticulitis. HOSPITAL COURSE: A surgical consult was obtained and Dr. Frost evaluated the patient. The decision was made to treat the patient conservatively with IV hydration and antibiotics, which was Levaquin and Flagyl. The patient continued to improve during the hospital course and actually stayed asymptomatic and his weakness and dizziness resolved. The patient is doing fine now and has no nausea, no vomiting, started with diet yesterday, which tolerating well. No abdominal pain, had bowel movements. No cough. No shortness of breath. No fever, no chills. PHYSICAL EXAMINATION: VITAL SIGNS: Temperature 98.5, pulse is 79, respirations 20, blood pressure 158/ 85, and oxygen saturation 93% on room air. LUNGS: Clear to auscultation. No rhonchi or wheezing or crackles. HEART: Regular S1 and S2. No murmur. No S3 was heard. ABDOMEN: Soft, nontender. Bowel sounds are positive. EXTREMITIES: No edema. DISCHARGE INSTRUCTIONS/MEDICATIONS: The patient will be discharged home to follow up with his primary care physician within 1 week. Also follow up with Dr. Frost as an outpatient as per instruction. Discharge medications will be Albuterol 2 puffs 4 times a day, amlodipine 5 mg daily, aspirin 81 mg daily, Lipitor 20 mg daily, Cozaar 50 mg twice a day, eplerenone 50 mg once a day, Flomax 0.4 mg daily, hydralazine 10 mg daily , irbesartan 300 mg daily, Lamictal 200 mg, apparently he gets 450 mg twice a day altogether. Metformin 750 mg daily, ranitidine 150 mg daily. The patient also will be on Levaquin 500 mg daily for 10 days, plus Flagyl 500 mg q.8 hours for another 10 days.
== END 2016-09-03 09:30 | disposition home or self-care (01) | DRG 392 ==
LOC: ED SRH 08:06 → TRANS SRH 11:22 → ACUTE2 SRH 13:08
PROVIDERS: ADMIT Emergency Medicine
DX: K57.80 Diverticulitis of intestine, part unspecified, with perforation and abscess without bleeding (principal); R42 Dizziness and giddiness; R53.1 Weakness; I10 Essential (primary) hypertension; K21.9 Gastro-esophageal reflux disease without esophagitis; I69.154 Hemiplegia and hemiparesis following nontraumatic intracerebral hemorrhage affecting left non-dominant side
CPT/HCPCS: 80264; 83475; 90004; 90047; 90074; 90100; 90469; 92031; 92720; 93140; 94060; 95059